=== PATIENT | male | born 1985 | race Caucasian/White ===

== ENCOUNTER 2019-05-05 21:03 | Observation (INO) | payer SELFPAY ==
[2019-05-05] MEDS ORDERED: Sodium Chloride 0.9% 2.5 ML Syringe FLUSH PRN (21:09)
[2019-05-05] MEDS ORDERED: Albuterol/Ipratropium 3.0-0.5 MG/3 ML Neb Soln NEB ONE (21:09)
[2019-05-05] MEDS ORDERED: Ketorolac 30 MG/ML SDV IVPUSH ONE (21:09)
[2019-05-05] MEDS ORDERED: Sodium Chloride 0.9% 10 ML Syringe FLUSH PRN (21:09)
--- NOTE | 2019-05-05 21:14 | EDM.PDOC ---
ED HPI GENERAL MEDICAL PROBLEM - General Chief Complaint: Drug or Alcohol Abuse Stated Complaint: EMS ARRIVAL POSSIBLE OD Time Seen by Provider: 05/05/19 21:04 - History of Present Illness INITIAL COMMENTS - FREE TEXT/NARRATIVE: HISTORY AND PHYSICAL: History of present illness: The patient is a 33-year-old male who arrives via EMS after they were dispatched for not breathing/apnea. On their arrival bystanders were trying to do CPR and the patient was bagged and given Narcan, intranasal and IV, and woke up and was alert and oriented. Here in the ED he denies that he has done any illicit drugs and he does admit that he has used [place] in the past for pain but his prescription bottle which is empty was filled in December and he says he has not taken any since March. He also has a history of ADHD for which he takes an amphetamine-based medications but he is he has not taken it recently. He denies any alcohol use tonight and does not smoke. He says that he had a normal day earlier and that this evening he has no recall of events and the next thing that he remembers was EMS being over him. He complains of diffuse body pain but no specific head neck or back pain. He says that everything is achy. He has had no recent fevers chills cough runny nose abdominal pain vomiting or diarrhea. Per EMS on their arrival the patient did have a vomit in the oral airway which was suctioned aggressively. Currently the patient says he is coughing and he did not have a cough earlier and he feels like it is painful to take a deep breath. He has no extremity complaints. He says he believes that he ate normally earlier but he is not sure. Review of systems: As per history of present illness and below otherwise all systems reviewed and negative. Past medical history: As per history of present illness and as reviewed below otherwise noncontributory. Surgical history: As per history of present illness and as reviewed below otherwise noncontributory. Social history: No reported history of drug or alcohol abuse. Family history: As per history of present illness and as reviewed below otherwise noncontributory. Physical exam: General: Well-developed well-nourished overweight man who is nontoxic and speaking clearly and vital signs are noted by me HEENT: Atraumatic, normocephalic, pupils reactive, negative for conjunctival pallor or scleral icterus, mucous membranes moist, throat clear, neck supple, nontender, trachea midline. Lungs: Coarse Breath sounds throughout all lung villarreal but there is no wheezing stridor and there is some minimal work of breathing and there is no breathlessness breath sounds equal bilaterally, chest nontender. Heart: S1S2, regular them and tachycardic rate on my evaluation but no overt murmurs Abdomen: Soft, nondistended, nontender. Negative for masses or hepatosplenomegaly. Negative for costovertebral tenderness. Pelvis: Stable nontender. Genitourinary: Deferred. Rectal: Deferred. Extremities: Atraumatic, negative for cords or calf pain. Neurovascular unremarkable. Full range of motion without defects or deficits and no pedal edema Neuro: Awake, alert, oriented. Cranial nerves II through XII unremarkable. Cerebellum unremarkable. Motor and sensory unremarkable throughout. Exam nonfocal. Back: There are no midline step-offs tenderness defects of the thoracic or lumbar spine and no soft tissue injuries such as abrasion ecchymosis or erythema Diagnostics: EKG CBC CMP UA UDS BNP Tylenol and aspirin levels alcohol level troponin and chest x-ray ABG Therapeutics: IV O2 monitor IV fluids DuoNeb Toradol 7 And has been holding his sats at 90 to 93% on 15 L nonrebreather and after the DuoNeb is coughing a lot. He does get intermittently very anxious but he is mentating fine and holding his vitals. We are going to do an ABG and evaluate for symptomatic BiPAP. We are currently awaiting the rest of his tests and a formal chest x-ray reading. 2149: I d/w with the hospitalist Dr Presley he is aware of the patient's status and that he would likely need ICU admission or transfer and she is currently in the hospital seeing other patients and will be recontacted after I obtain all testing results in the ICU. Patient has had his oxygen weaned to 2 L and is satting 94% and is thirsty. I will re-discussed this case with the hospitalist in light of his testing results. 8: Have discussed all testing results with the patient and he continues to deny any drug use this evening. He is feeling much improved and we continue to wean his oxygen. He is thirsty and wants to drink and is not complaining of any specific chest pain but just generalized body aches. I have also discussed this case with Dr. Presley her hospitalist and she is aware of all test including the troponin and feels comfortable admitting him here to ICU. critical care time excluding procedures:35min Impression: Acute respiratory abnormalities with hypoxia, acute pulmonary edema with likely aspiration; elevated troponin Recent drug use Definitive disposition and diagnosis as appropriate pending reevaluation and review of above. generalized Pain Score (Numeric/FACES): 10 - Related Data Allergies Allergy/AdvReac Type Severity Reaction Status Date / Time No Known Allergies Allergy Verified 05/05/19 21:05 Home Meds: Home Meds Dextroamphetamine/Amphetamine [Adderall] 30 mg PO DAILY 05/05/19 [History] Hydrocodone/Acetaminophen [Hydrocodon-Acetaminoph 7.5-325] 1 each PO ASDIRECTED PRN 05/05/19 [History] ED ROS GENERAL - Review of Systems Review Of Systems: Comprehensive ROS is negative, except as noted in HPI. ED EXAM, GENERAL - Physical Exam Exam: See Below (see dictation) Course - Vital Signs Last Recorded V/S: Last Vital Signs Temp 36.7 C 05/05/19 22:58 Pulse 101 H 05/05/19 23:12 Resp 23 H 05/05/19 23:12 BP 126/78 05/05/19 23:12 Pulse Ox 95 05/05/19 23:12 - Orders/Labs/Meds Orders: Active Orders 24 hr Category Date Time Status Patient Status [ADT] Stat ADT 05/05/19 23:28 Ordered Cardiac Monitoring [RC] . DIRECTED Care 05/05/19 21:08 Active EKG Documentation Completion [RC] STAT Care 05/05/19 21:08 Active Oxygen Therapy, ED [RC] ASDIRECTED Care 05/05/19 21:08 Active Pulse Oximetry [RC] ASDIRECTED Care 05/05/19 21:08 Active RT Aerosol Therapy [RC] ASDIRECTED Care 05/05/19 21:09 Active Sodium Chloride 0.9% [Normal Saline] 1,000 ml Med 05/05/19 21:15 Active IV ASDIRECTED Sodium Chloride 0.9% [Saline Flush] Med 05/05/19 21:09 Active 10 ml FLUSH ASDIRECTED PRN Sodium Chloride 0.9% [Saline Flush] Med 05/05/19 21:09 Active 2.5 ml FLUSH ASDIRECTED PRN Saline Lock Insert [OM.PC] Stat Oth 05/05/19 21:08 Ordered Medication Orders Sodium Chloride (Normal Saline) 1,000 mls @ 150 mls/hr IV ASDIRECTED IRVIN Last Admin: 05/05/19 21:36 Dose: 150 mls/hr Sodium Chloride (Saline Flush) 10 ml FLUSH ASDIRECTED PRN PRN Reason: Keep Vein Open Sodium Chloride (Saline Flush) 2.5 ml FLUSH ASDIRECTED PRN PRN Reason: Keep Vein Open Labs: Laboratory Tests 05/05/19 05/05/19 05/05/19 Range/Units 21:22 21:22 21:22 WBC 9.31 (4.0-11.0) K/uL RBC 5.58 (4.50-5.90) M/uL Hgb 16.1 (13.0-17.0) g/dL Hct 47.0 (38.0-50.0) % MCV 84.2 (80.0-98.0) fL MCH 28.9 (27.0-32.0) pg MCHC 34.3 (31.0-37.0) g/dL RDW Std Deviation 45.0 (28.0-62.0) fl RDW Coeff of Atb 15 (11.0-15.0) % Plt Count 299 (150-400) K/uL MPV 11.30 (7.40-12.00) fL Neut % (Auto) 72.2 (48.0-80.0) % Lymph % (Auto) 20.0 (16.0-40.0) % [place] % (Auto) 5.3 (0.0-15.0) % Eos % (Auto) 1.7 (0.0-7.0) % Baso % (Auto) 0.8 (0.0-1.5) % Neut # (Auto) 6.7 H (1.4-5.7) K/uL Lymph # (Auto) 1.9 (0.6-2.4) K/uL [place] # (Auto) 0.5 (0.0-0.8) K/uL Eos # (Auto) 0.2 (0.0-0.7) K/uL Baso # (Auto) 0.1 (0.0-0.1) K/uL Nucleated RBC % 0.0 /100WBC Nucleated RBCs # 0 K/uL ABG pH (7.35-7.45) ABG pCO2 (35-45) mmHG ABG pO2 (75-100) mmHG ABG HCO3 (22-26) mEq/L ABG Total CO2 ABG Base Excess (-2.0-2.0) Sodium 141 (136-148) mmol/L Potassium 4.0 (3.5-5.1) mmol/L Chloride 103 (98-107) mmol/L Carbon Dioxide 22.9 (21.0-32.0) mmol/L BUN 17 (7.0-18.0) mg/dL Creatinine 1.4 H (0.8-1.3) mg/dL Est Cr Clr Drug Dosing 80.68 mL/min Estimated GFR (MDRD) 58.7 ml/min Glucose 122 H (74-106) mg/dL Calcium 9.6 (8.5-10.1) mg/dL Total Bilirubin 0.4 (0.2-1.0) mg/dL AST 121 H (15-37) IU/L ALT 122 H (14-63) IU/L Alkaline Phosphatase 80 (46-116) U/L Troponin I 0.069 H* (0.000-0.056) ng/mL B-Natriuretic Peptide 21 (<100) PG/ML Total Protein 7.6 (6.4-8.2) g/dL Albumin 3.7 (3.4-5.0) g/dL Globulin 3.9 (2.6-4.0) g/dL Albumin/Globulin Ratio 0.9 (0.9-1.6) Urine Color Urine Appearance Urine pH (5.0-8.0) Ur Specific [place] (1.001-1.035) Urine Protein (NEGATIVE) mg/dL Urine Glucose (UA) (NEGATIVE) mg/dL Urine Ketones (NEGATIVE) mg/dL Urine Occult Blood (NEGATIVE) Urine Nitrite (NEGATIVE) Urine Bilirubin (NEGATIVE) Urine Urobilinogen (<2.0) EU/dL Ur Leukocyte Esterase (NEGATIVE) Urine RBC (0-2/HPF) Urine WBC (0-5/HPF) Ur Epithelial Cells (NONE-FEW) Urine Bacteria (NEGATIVE) Salicylates 2.2 (0-20) mg/dL Urine Opiates Screen (NEGATIVE) Ur Oxycodone Screen (NEGATIVE) Urine Methadone Screen (NEGATIVE) Acetaminophen <2.0 ug/mL Ur Barbiturates Screen (NEGATIVE) Ur Phencyclidine Scrn (NEGATIVE) Ur Amphetamine Screen (NEGATIVE) U Methamphetamines Scrn (NEGATIVE) U Benzodiazepines Scrn (NEGATIVE) U Cocaine Metab Screen (NEGATIVE) U Marijuana (THC) Screen (NEGATIVE) Ethyl Alcohol <3 mg/dL 05/05/19 05/05/19 05/05/19 Range/Units 21:50 22:11 22:11 WBC (4.0-11.0) K/uL RBC (4.50-5.90) M/uL Hgb (13.0-17.0) g/dL Hct (38.0-50.0) % MCV (80.0-98.0) fL MCH (27.0-32.0) pg MCHC (31.0-37.0) g/dL RDW Std Deviation (28.0-62.0) fl RDW Coeff of Tab (11.0-15.0) % Plt Count (150-400) K/uL MPV (7.40-12.00) fL Neut % (Auto) (48.0-80.0) % Lymph % (Auto) (16.0-40.0) % [place] % (Auto) (0.0-15.0) % Eos % (Auto) (0.0-7.0) % Baso % (Auto) (0.0-1.5) % Neut # (Auto) (1.4-5.7) K/uL Lymph # (Auto) (0.6-2.4) K/uL [place] # (Auto) (0.0-0.8) K/uL Eos # (Auto) (0.0-0.7) K/uL Baso # (Auto) (0.0-0.1) K/uL Nucleated RBC % /100WBC Nucleated RBCs # K/uL ABG pH 7.364 (7.35-7.45) ABG pCO2 44 (35-45) mmHG ABG pO2 85 (75-100) mmHG ABG HCO3 25 (22-26) mEq/L ABG Total CO2 22.1 ABG Base Excess -0.7 (-2.0-2.0) Sodium (136-148) mmol/L Potassium (3.5-5.1) mmol/L Chloride (98-107) mmol/L Carbon Dioxide (21.0-32.0) mmol/L BUN (7.0-18.0) mg/dL Creatinine (0.8-1.3) mg/dL Est Cr Clr Drug Dosing mL/min Estimated GFR (MDRD) ml/min Glucose (74-106) mg/dL Calcium (8.5-10.1) mg/dL Total Bilirubin (0.2-1.0) mg/dL AST (15-37) IU/L ALT (14-63) IU/L Alkaline Phosphatase (46-116) U/L Troponin I (0.000-0.056) ng/mL B-Natriuretic Peptide (<100) PG/ML Total Protein (6.4-8.2) g/dL Albumin (3.4-5.0) g/dL Globulin (2.6-4.0) g/dL Albumin/Globulin Ratio (0.9-1.6) Urine Color YELLOW Urine Appearance CLEAR Urine pH 5.5 (5.0-8.0) Ur Specific [place] >= 1.030 (1.001-1.035) Urine Protein TRACE H (NEGATIVE) mg/dL Urine Glucose (UA) NEGATIVE (NEGATIVE) mg/dL Urine Ketones NEGATIVE (NEGATIVE) mg/dL Urine Occult Blood NEGATIVE (NEGATIVE) Urine Nitrite NEGATIVE (NEGATIVE) Urine Bilirubin NEGATIVE (NEGATIVE) Urine Urobilinogen 0.2 (<2.0) EU/dL Ur Leukocyte Esterase NEGATIVE (NEGATIVE) Urine RBC 0-1 (0-2/HPF) Urine WBC 0-1 (0-5/HPF) Ur Epithelial Cells RARE (NONE-FEW) Urine Bacteria RARE (NEGATIVE) Salicylates (0-20) mg/dL Urine Opiates Screen NEGATIVE (NEGATIVE) Ur Oxycodone Screen NEGATIVE (NEGATIVE) Urine Methadone Screen NEGATIVE (NEGATIVE) Acetaminophen ug/mL Ur Barbiturates Screen NEGATIVE (NEGATIVE) Ur Phencyclidine Scrn NEGATIVE (NEGATIVE) Ur Amphetamine Screen POSITIVE (NEGATIVE) U Methamphetamines Scrn NEGATIVE (NEGATIVE) U Benzodiazepines Scrn NEGATIVE (NEGATIVE) U Cocaine Metab Screen POSITIVE (NEGATIVE) U Marijuana (THC) Screen NEGATIVE (NEGATIVE) Ethyl Alcohol mg/dL Meds: Medications Generic Name Dose Route Start Last Admin Trade Name Sherrell PRN Reason Stop Dose Admin Sodium Chloride 1,000 mls @ 150 mls/hr 05/05/19 21:15 05/05/19 21:36 Normal Saline IV 150 mls/hr ASDIRECTED IRVIN Administration Sodium Chloride 10 ml 05/05/19 21:09 Saline Flush FLUSH ASDIRECTED PRN Keep Vein Open Sodium Chloride 2.5 ml 05/05/19 21:09 Saline Flush FLUSH ASDIRECTED PRN Keep Vein Open Discontinued Medications Generic Name Dose Route Start Last Admin Trade Name Sherrell PRN Reason Stop Dose Admin Albuterol/Ipratropium 3 ml 05/05/19 21:09 05/05/19 21:36 Duoneb 3.0-0.5 Mg/3 Ml NEB 05/05/19 21:10 3 ml ONETIME ONE Administration Piperacillin Sod/Tazobactam 100 mls @ 100 mls/hr 05/05/19 22:10 05/05/19 22: 32 Sod 4.5 gm/ Sodium Chloride IV 05/05/19 23:09 100 mls/hr ONETIME ONE Administration Ketorolac Tromethamine 30 mg 05/05/19 21:09 05/05/19 21:37 Toradol IVPUSH 05/05/19 21:10 30 mg ONETIME ONE Administration Departure - Departure Time of Disposition: 23:30 Disposition: Refer to Observation Condition: Fair Clinical Impression: Hypoxia, Respiratory abnormalities, Drug use, Elevated troponin - Discharge Information Forms: ED Department Discharge Sepsis Event Note - Focused Exam Vital Signs: Vital Signs Temp Pulse Resp BP Pulse Ox Pulse Ox 05/05/19 23:12 101 H 23 H 126/78 95 05/05/19 22:58 36.7 C 97 17 135/78 94 L 05/05/19 22:34 99 22 H 135/83 99 05/05/19 22:28 99 22 H 145/81 H 98 05/05/19 21:56 102 H 24 H 135/75 97 05/05/19 21:41 107 H 24 H 118/48 L 93 L 05/05/19 21:40 92 L 05/05/19 21:13 36.6 C 125 H 20 136/104 H 90 L Date Exam was Performed: 05/05/19 Time Exam was Performed: 23:29 - My Orders Last 24 Hours: My Active Orders 05/05/19 21:08 Cardiac Monitoring [RC] . DIRECTED EKG Documentation Completion [RC] STAT Oxygen Therapy, ED [RC] ASDIRECTED Pulse Oximetry [RC] ASDIRECTED Saline Lock Insert [OM.PC] Stat 05/05/19 21:09 RT Aerosol Therapy [RC] ASDIRECTED Sodium Chloride 0.9% [Saline Flush] 10 ml FLUSH ASDIRECTED PRN Sodium Chloride 0.9% [Saline Flush] 2.5 ml FLUSH ASDIRECTED PRN 05/05/19 21:15 Sodium Chloride 0.9% [Normal Saline] 1,000 ml IV ASDIRECTED 05/05/19 23:28 Patient Status [ADT] Stat - Assessment/Plan Last 24 Hours: My Active Orders 05/05/19 21:08 Cardiac Monitoring [RC] . DIRECTED EKG Documentation Completion [RC] STAT Oxygen Therapy, ED [RC] ASDIRECTED Pulse Oximetry [RC] ASDIRECTED Saline Lock Insert [OM.PC] Stat 05/05/19 21:09 RT Aerosol Therapy [RC] ASDIRECTED Sodium Chloride 0.9% [Saline Flush] 10 ml FLUSH ASDIRECTED PRN Sodium Chloride 0.9% [Saline Flush] 2.5 ml FLUSH ASDIRECTED PRN 05/05/19 21:15 Sodium Chloride 0.9% [Normal Saline] 1,000 ml IV ASDIRECTED 05/05/19 23:28 Patient Status [ADT] Stat
[2019-05-05] MEDS ORDERED: Sodium Chloride 0.9% 1,000 ML IV SCH (21:15)
[2019-05-05 21:52] LABS: ACETAMINOPHEN <2.0 ug/mL; BLOOD UREA NITROGEN,BUN 17 mg/dL (7.0-18.0); CARBON DIOXIDE,CO2 22.9 mmol/L (21.0-32.0); CHLORIDE,CL 103 mmol/L (98-107); GLUCOSE RANDOM 122 mg/dL (74-106); SODIUM,NA 141 mmol/L (136-148)
--- NOTE | 2019-05-05 21:56 | CR ---
Indication: Possible OD. Found unresponsive by EMS Technique: Single AP portable view of the chest. Comparison: None Findings: Hurts normal-sized. Diffusely increased interstitial opacities are identified bilaterally. No pleural effusion or pneumothorax is identified. Impression: Diffusely increased interstitial opacities bilaterally, particularly within the upper lobes. Dictated by Flora Gonzalez MD @ May 05 2019 9:52PM Signed by Dr. Flora Gonzalez @ May 05 2019 9:54PM
[2019-05-05] MEDS ORDERED: Piperacillin/Tazobactam 4.5 GM in Sodium Chloride 0.9% 100 ML IV ONE (22:10)
--- NOTE | 2019-05-06 00:20 | PCM.HP.2 ---
H&P History of Present Illness - General Date of Service: 05/06/19 Admit Problem/Dx: Admission Diagnosis/Problem Admission Diagnosis/Problem Respiratory abnormality - History of Present Illness Initial Comments - Free Text/Narative: Patient is a 33 y/o M with PMH of drug abuse who comes in via EMS for apnea. Patient reportedly received was found to have no pulse hence received CPR and was being bagged for airway. Upon administering Narcan patient was able to wake up and was awake and oriented. Patient is not very forth coming about his history. Denied any illicit drug use. States he has prescription for Narco in the past. He also takes Amphetamine based Meds for his ADHD. Patient denies any alcohol use tonight and does not smoke. He complains of diffuse body pain but no specific head, neck back pain or chest pain. Per EMS on their arrival the patient did have a vomit in the oral airway which was suctioned aggressively. Currently the patient says he is coughing and he did not have a cough earlier and he feels like it is painful to take a deep breath. He has had no recent fevers chills cough runny nose abdominal pain, diarrhea. In the ER patients UDS was found to positive for cocaine and amphetamine. Patients Xray showed diffuse interstitial lung markings. Received antibiotics for possible Aspiration pneumonia. Patient was requiring 15 litres of high flow o2 in ER. In next few hours his oxygen requiemt improved to 4 L. !st set of trop was elevated attributed to him receiving CPR vs possible cocaine induced vasospasm. Patient is being admitted to ICU for further care. generalized Pain Score (Numeric/FACES): 8 - Related Data Allergies/Adverse Reactions: Allergies Allergy/AdvReac Type Severity Reaction Status Date / Time No Known Allergies Allergy Verified 05/05/19 21:05 Home Medications: Home Meds Dextroamphetamine/Amphetamine [Adderall] 30 mg PO DAILY 05/05/19 [History] Hydrocodone/Acetaminophen [Hydrocodon-Acetaminoph 7.5-325] 1 each PO ASDIRECTED PRN 05/05/19 [History] Past Medical History HEENT History: Reports: None Cardiovascular History: Reports: None Respiratory History: Reports: None Gastrointestinal History: Reports: None Genitourinary History: Reports: None Musculoskeletal History: Reports: None Neurological History: Reports: None Psychiatric History: Reports: ADHD Endocrine/Metabolic History: Reports: None Hematologic History: Reports: None Oncologic (Cancer) History: Reports: None Dermatologic History: Reports: None - Infectious Disease History Infectious Disease History: Reports: None Social & Family History - Family History Family Medical History: Noncontributory - Tobacco Use Smoking Status *Q: Current Every Day Smoker Years of Tobacco use: 5 Packs/Tins Daily: 1 - Recreational Drug Use Recreational Drug Use: No H&P Review of Systems - Review of Systems: Review Of Systems: See Below General: Denies: Fever, Chills, Malaise, Fatigue Pulmonary: Reports: Shortness of Breath, Wheezing, Pleuritic Chest Pain, Cough. Denies: Sputum Cardiovascular: Denies: Chest Pain, Palpitations, Orthopnea Gastrointestinal: Denies: Abdominal Pain, Anorexia, Black Stool, Bloody Stool Genitourinary: Denies: Frequency, Burning, Retention Musculoskeletal: Denies: Neck Pain, Shoulder Pain, Arm Pain Skin: Denies: Cyanosis, Jaundice, Mottled Psychiatric: Denies: Confusion, Depression, Mood Lability Neurological: Denies: Confusion, Dizziness, Headache, Numbness, Paresthesia Hematologic/Lymphatic: Denies: Anemia, Easy Bleeding Exam - Exam Exam: See Below - Vital Signs Vital Signs: Last Vital Signs Temp 36.2 C 05/06/19 00:14 Pulse 101 H 05/06/19 00:14 Resp 20 05/06/19 00:14 BP 133/70 05/06/19 00:14 Pulse Ox 95 05/06/19 00:14 Weight: 104.326 kg - Exam Quality Assessment: Supplemental Oxygen General: Alert, Oriented. No: Cooperative HEENT: Conjunctiva Clear Neck: Supple, Trachea Midline Lungs: Rales, Wheezing Cardiovascular: Regular Rate, Regular Rhythm, Normal S1, Normal S2 GI/Abdominal Exam: Normal Bowel Sounds, Soft, Non-Tender - Patient Data Lab Results Last 24 hrs: Laboratory Results - last 24 hr 05/05/19 05/05/19 05/05/19 Range/Units 21:22 21:22 21:22 WBC 9.31 (4.0-11.0) K/uL RBC 5.58 (4.50-5.90) M/uL Hgb 16.1 (13.0-17.0) g/dL Hct 47.0 (38.0-50.0) % MCV 84.2 (80.0-98.0) fL MCH 28.9 (27.0-32.0) pg MCHC 34.3 (31.0-37.0) g/dL RDW Std Deviation 45.0 (28.0-62.0) fl RDW Coeff of Tab 15 (11.0-15.0) % Plt Count 299 (150-400) K/uL MPV 11.30 (7.40-12.00) fL Neut % (Auto) 72.2 (48.0-80.0) % Lymph % (Auto) 20.0 (16.0-40.0) % [place] % (Auto) 5.3 (0.0-15.0) % Eos % (Auto) 1.7 (0.0-7.0) % Baso % (Auto) 0.8 (0.0-1.5) % Neut # (Auto) 6.7 H (1.4-5.7) K/uL Lymph # (Auto) 1.9 (0.6-2.4) K/uL [place] # (Auto) 0.5 (0.0-0.8) K/uL Eos # (Auto) 0.2 (0.0-0.7) K/uL Baso # (Auto) 0.1 (0.0-0.1) K/uL Nucleated RBC % 0.0 /100WBC Nucleated RBCs # 0 K/uL ABG pH (7.35-7.45) ABG pCO2 (35-45) mmHG ABG pO2 (75-100) mmHG ABG HCO3 (22-26) mEq/L ABG Total CO2 ABG Base Excess (-2.0-2.0) Sodium 141 (136-148) mmol/L Potassium 4.0 (3.5-5.1) mmol/L Chloride 103 (98-107) mmol/L Carbon Dioxide 22.9 (21.0-32.0) mmol/L BUN 17 (7.0-18.0) mg/dL Creatinine 1.4 H (0.8-1.3) mg/dL Est Cr Clr Drug Dosing 80.68 mL/min Estimated GFR (MDRD) 58.7 ml/min Glucose 122 H (74-106) mg/dL Calcium 9.6 (8.5-10.1) mg/dL Total Bilirubin 0.4 (0.2-1.0) mg/dL AST 121 H (15-37) IU/L ALT 122 H (14-63) IU/L Alkaline Phosphatase 80 (46-116) U/L Troponin I 0.069 H* (0.000-0.056) ng/mL B-Natriuretic Peptide 21 (<100) PG/ML Total Protein 7.6 (6.4-8.2) g/dL Albumin 3.7 (3.4-5.0) g/dL Globulin 3.9 (2.6-4.0) g/dL Albumin/Globulin Ratio 0.9 (0.9-1.6) Urine Color Urine Appearance Urine pH (5.0-8.0) Ur Specific [place] (1.001-1.035) Urine Protein (NEGATIVE) mg/dL Urine Glucose (UA) (NEGATIVE) mg/dL Urine Ketones (NEGATIVE) mg/dL Urine Occult Blood (NEGATIVE) Urine Nitrite (NEGATIVE) Urine Bilirubin (NEGATIVE) Urine Urobilinogen (<2.0) EU/dL Ur Leukocyte Esterase (NEGATIVE) Urine RBC (0-2/HPF) Urine WBC (0-5/HPF) Ur Epithelial Cells (NONE-FEW) Urine Bacteria (NEGATIVE) Salicylates 2.2 (0-20) mg/dL Urine Opiates Screen (NEGATIVE) Ur Oxycodone Screen (NEGATIVE) Urine Methadone Screen (NEGATIVE) Acetaminophen <2.0 ug/mL Ur Barbiturates Screen (NEGATIVE) Ur Phencyclidine Scrn (NEGATIVE) Ur Amphetamine Screen (NEGATIVE) U Methamphetamines Scrn (NEGATIVE) U Benzodiazepines Scrn (NEGATIVE) U Cocaine Metab Screen (NEGATIVE) U Marijuana (THC) Screen (NEGATIVE) Ethyl Alcohol <3 mg/dL 05/05/19 05/05/19 05/05/19 Range/Units 21:50 22:11 22:11 WBC (4.0-11.0) K/uL RBC (4.50-5.90) M/uL Hgb (13.0-17.0) g/dL Hct (38.0-50.0) % MCV (80.0-98.0) fL MCH (27.0-32.0) pg MCHC (31.0-37.0) g/dL RDW Std Deviation (28.0-62.0) fl RDW Coeff of Tab (11.0-15.0) % Plt Count (150-400) K/uL MPV (7.40-12.00) fL Neut % (Auto) (48.0-80.0) % Lymph % (Auto) (16.0-40.0) % [place] % (Auto) (0.0-15.0) % Eos % (Auto) (0.0-7.0) % Baso % (Auto) (0.0-1.5) % Neut # (Auto) (1.4-5.7) K/uL Lymph # (Auto) (0.6-2.4) K/uL [place] # (Auto) (0.0-0.8) K/uL Eos # (Auto) (0.0-0.7) K/uL Baso # (Auto) (0.0-0.1) K/uL Nucleated RBC % /100WBC Nucleated RBCs # K/uL ABG pH 7.364 (7.35-7.45) ABG pCO2 44 (35-45) mmHG ABG pO2 85 (75-100) mmHG ABG HCO3 25 (22-26) mEq/L ABG Total CO2 22.1 ABG Base Excess -0.7 (-2.0-2.0) Sodium (136-148) mmol/L Potassium (3.5-5.1) mmol/L Chloride (98-107) mmol/L Carbon Dioxide (21.0-32.0) mmol/L BUN (7.0-18.0) mg/dL Creatinine (0.8-1.3) mg/dL Est Cr Clr Drug Dosing mL/min Estimated GFR (MDRD) ml/min Glucose (74-106) mg/dL Calcium (8.5-10.1) mg/dL Total Bilirubin (0.2-1.0) mg/dL AST (15-37) IU/L ALT (14-63) IU/L Alkaline Phosphatase (46-116) U/L Troponin I (0.000-0.056) ng/mL B-Natriuretic Peptide (<100) PG/ML Total Protein (6.4-8.2) g/dL Albumin (3.4-5.0) g/dL Globulin (2.6-4.0) g/dL Albumin/Globulin Ratio (0.9-1.6) Urine Color YELLOW Urine Appearance CLEAR Urine pH 5.5 (5.0-8.0) Ur Specific [place] >= 1.030 (1.001-1.035) Urine Protein TRACE H (NEGATIVE) mg/dL Urine Glucose (UA) NEGATIVE (NEGATIVE) mg/dL Urine Ketones NEGATIVE (NEGATIVE) mg/dL Urine Occult Blood NEGATIVE (NEGATIVE) Urine Nitrite NEGATIVE (NEGATIVE) Urine Bilirubin NEGATIVE (NEGATIVE) Urine Urobilinogen 0.2 (<2.0) EU/dL Ur Leukocyte Esterase NEGATIVE (NEGATIVE) Urine RBC 0-1 (0-2/HPF) Urine WBC 0-1 (0-5/HPF) Ur Epithelial Cells RARE (NONE-FEW) Urine Bacteria RARE (NEGATIVE) Salicylates (0-20) mg/dL Urine Opiates Screen NEGATIVE (NEGATIVE) Ur Oxycodone Screen NEGATIVE (NEGATIVE) Urine Methadone Screen NEGATIVE (NEGATIVE) Acetaminophen ug/mL Ur Barbiturates Screen NEGATIVE (NEGATIVE) Ur Phencyclidine Scrn NEGATIVE (NEGATIVE) Ur Amphetamine Screen POSITIVE (NEGATIVE) U Methamphetamines Scrn NEGATIVE (NEGATIVE) U Benzodiazepines Scrn NEGATIVE (NEGATIVE) U Cocaine Metab Screen POSITIVE (NEGATIVE) U Marijuana (THC) Screen NEGATIVE (NEGATIVE) Ethyl Alcohol mg/dL Result Diagrams: 05/05/19 21:22 05/05/19 21:22 Sepsis Event Note - Evaluation Sepsis Screening Result: No Definite Risk - Focused Exam Vital Signs: Vital Signs Temp Pulse Resp BP Pulse Ox Pulse Ox 05/06/19 00:14 36.2 C 101 H 20 133/70 95 05/05/19 23:42 36.6 C 101 H 20 126/78 96 05/05/19 23:12 101 H 23 H 126/78 95 05/05/19 22:58 36.7 C 97 17 135/78 94 L 05/05/19 22:34 99 22 H 135/83 99 05/05/19 22:28 99 22 H 145/81 H 98 05/05/19 21:56 102 H 24 H 135/75 97 05/05/19 21:41 107 H 24 H 118/48 L 93 L 05/05/19 21:40 92 L 05/05/19 21:13 36.6 C 125 H 20 136/104 H 90 L Date Exam was Performed: 05/06/19 Time Exam was Performed: 00:39 - Problem List (1) Acute respiratory failure with hypoxia SNOMED Code(s): 44453312, 114238923 ICD Code: J96.01 - ACUTE RESPIRATORY FAILURE WITH HYPOXIA Status: Acute (2) Drug use SNOMED Code(s): 881658563 ICD Code: F19.90 - OTHER PSYCHOACTIVE SUBSTANCE USE, UNSPECIFIED, UNCOMPLICATED Status: Acute (3) Elevated troponin SNOMED Code(s): 609611135, 376923235, 427751523 ICD Code: R79.89 - OTHER SPECIFIED ABNORMAL FINDINGS OF BLOOD CHEMISTRY Status: Acute Problem List Initiated/Reviewed/Updated: Yes Orders Last 24hrs: Active Orders 24 hr Category Date Time Status Patient Status [ADT] Stat ADT 05/05/19 23:28 Active Bedrest Bathroom Privileges [RC] ASDIRECTED Care 05/06/19 00:14 Ordered Cardiac Monitoring [RC] . DIRECTED Care 05/05/19 21:08 Active EKG Documentation Completion [RC] STAT Care 05/05/19 21:08 Active Oxygen Therapy [RC] CONTINUOUS Care 05/06/19 00:15 Ordered Oxygen Therapy, ED [RC] ASDIRECTED Care 05/05/19 21:08 Active Pulse Oximetry [RC] ASDIRECTED Care 05/05/19 21:08 Active RT Aerosol Therapy [RC] ASDIRECTED Care 05/05/19 21:09 Active RT Aerosol Therapy [RC] ASDIRECTED Care 05/06/19 00:16 Ordered Vital Signs [RC] Q4H Care 05/06/19 00:14 Ordered Clear Liquid Diet [DIET] Diet 05/06/19 Breakfast Ordered Echo 2D wo Cont [US] Stat Exams 05/06/19 00:17 Ordered LIPID PANEL [CHEM] AM Lab 05/06/19 05:11 Ordered TROPONIN I [CHEM] Q3H Lab 05/06/19 00:20 Ordered TROPONIN I [CHEM] Q3H Lab 05/06/19 03:20 Ordered TSH [CHEM] AM Lab 05/06/19 05:11 Ordered Albuterol/Ipratropium [DuoNeb 3.0-0.5 MG/3 ML] Med 05/06/19 02:00 Ordered 3 ml NEB Q4HRRT Lactated Ringers @ 100 MLS/HR(1,000ml) Med 05/06/19 00:30 Ordered Lactated Ringers [Ringers, Lactated] 1,000 ml IV ASDIRECTED Sodium Chloride 0.9% [Normal Saline] 1,000 ml Med 05/05/19 21:15 Active IV ASDIRECTED Sodium Chloride 0.9% [Saline Flush] Med 05/05/19 21:09 Active 10 ml FLUSH ASDIRECTED PRN Sodium Chloride 0.9% [Saline Flush] Med 05/05/19 21:09 Active 2.5 ml FLUSH ASDIRECTED PRN Saline Lock Insert [OM.PC] Stat Oth 05/05/19 21:08 Ordered Medication Orders Albuterol/Ipratropium (Duoneb 3.0-0.5 Mg/3 Ml) 3 ml NEB Q4HRRT IRVIN Sodium Chloride (Normal Saline) 1,000 mls @ 150 mls/hr IV ASDIRECTED IRVIN Last Admin: 05/05/19 21:36 Dose: 150 mls/hr Lactated Ringer's (Ringers, Lactated) 1,000 mls @ 100 mls/hr IV ASDIRECTED IRVIN Sodium Chloride (Saline Flush) 10 ml FLUSH ASDIRECTED PRN PRN Reason: Keep Vein Open Sodium Chloride (Saline Flush) 2.5 ml FLUSH ASDIRECTED PRN PRN Reason: Keep Vein Open Assessment/Plan Comment:: 33 y/o M comes in after he was found apneic s/p CPR, s/p Narcan administration Currently requiring 4-5 lts of O2 Cont oxygenation via NC to maintain o2 >93% DuoNebs Q4 Scheduled 1 dose of Lasix 40 mg or possible pulmonary edema secondary to cardiac insult Hold if IV antibiotics for now Cont to trend troponin,elevated likely secondary to CPR vs cocaine induced Patient does not c/o chest pain , generalized aches and pain, reproducible musculoskeletal chest tenderness Check Morning CBC, BMP, mg,phos, lfts cont IVF, keep NPO for now Needs outpatient drug rehab when patient is willing to quit, for now patient denied any drug use.
[2019-05-06] MEDS ORDERED: Ketorolac 15 MG/ML SDV IVPUSH PRN (00:38)
--- NOTE | 2019-05-06 01:16 | PN ---
THC Physician - Brief Progress [id number]/29/2020 00:59[facility] [place], [place] - [facility] AMADO of Service 05/06/2019 00:59HPI/Even ts of Note Brief eICU Admit [id number] yo with hx of Drug abusePresents with Drug OD possible cardiac arrestO/E Seen on cameraVSS, NADIssuesDrug abuses/p arrestResponsive? aspirationFollowSupportive care Case reviewed with bedside MDCall with questionsWill followInterventions Major-Change in mental stat us - evaluation and management
[2019-05-06] MEDS: Lactated Ringers 1,000 ML IV SCH ×2 (01:36→12:47)
[2019-05-06] MEDS: Albuterol/Ipratropium 3.0-0.5 MG/3 ML Neb Soln NEB SCH ×6 (01:58→21:30)
[2019-05-06] MEDS: Enoxaparin 100 MG/1 ML Syringe SUBCUT SCH ×2 (02:22→05:45)
[2019-05-06] MEDS ORDERED: Ketorolac 30 MG/ML SDV IVPUSH ONE (04:30)
[2019-05-06 08:38] LABS: BLOOD UREA NITROGEN,BUN 18 mg/dL (7.0-18.0); CARBON DIOXIDE,CO2 25.3 mmol/L (21.0-32.0); CHLORIDE,CL 104 mmol/L (98-107); GLUCOSE RANDOM 103 mg/dL (74-106); POTASSIUM,K 4.3 mmol/L (3.5-5.1); SODIUM,NA 138 mmol/L (136-148)
[2019-05-06] MEDS: Piperacillin/Tazobactam 4.5 GM in Sodium Chloride 0.9% 100 ML IV SCH ×3 (10:21→22:12)
[2019-05-06] MEDS: Ketorolac 15 MG/ML SDV IVPUSH PRN ×2 (10:22→17:21)
--- NOTE | 2019-05-06 10:43 | PCM.PN ---
- General Info Date of Service: 05/06/19 Subjective Update: The patient denies chest pain, shortness of breath. Oxygen requirement improving from 15 L to 1L. Does endorse that he took what he thought was hydrocodone that he received on the street not from a pharmacy, he denies cocaine use despite testing positive on UDS. His biggest concern is bilateral hand pain that has been going on for many months, denies known trauma, has some swelling, denies redness. - Review of Systems General: Reports: No Symptoms HEENT: Reports: No Symptoms Pulmonary: Reports: No Symptoms Cardiovascular: Reports: No Symptoms Gastrointestinal: Reports: No Symptoms Genitourinary: Reports: No Symptoms Musculoskeletal: Reports: Hand Pain Skin: Reports: No Symptoms Neurological: Reports: No Symptoms Psychiatric: Reports: No Symptoms - Patient Data Vitals - Most Recent: Last Vital Signs Temp 99.9 F 05/06/19 04:20 Pulse 101 H 05/06/19 00:14 Resp 22 H 05/06/19 07:00 BP 135/86 05/06/19 01:00 Pulse Ox 96 05/06/19 07:00 Weight - Most Recent: 107.365 kg I&O - Last 24 Hours: Intake & Output 05/05/19 05/06/19 05/06/19 22:59 06:59 14:59 Intake Total 4010 678 Output Total 200 Balance 3810 678 Lab Results Last 24 Hours: Laboratory Results - last 24 hr 05/05/19 05/05/19 05/05/19 Range/Units 21:22 21:22 21:22 WBC 9.31 (4.0-11.0) K/uL RBC 5.58 (4.50-5.90) M/uL Hgb 16.1 (13.0-17.0) g/dL Hct 47.0 (38.0-50.0) % MCV 84.2 (80.0-98.0) fL MCH 28.9 (27.0-32.0) pg MCHC 34.3 (31.0-37.0) g/dL RDW Std Deviation 45.0 (28.0-62.0) fl RDW Coeff of Tab 15 (11.0-15.0) % Plt Count 299 (150-400) K/uL MPV 11.30 (7.40-12.00) fL Neut % (Auto) 72.2 (48.0-80.0) % Lymph % (Auto) 20.0 (16.0-40.0) % [place] % (Auto) 5.3 (0.0-15.0) % Eos % (Auto) 1.7 (0.0-7.0) % Baso % (Auto) 0.8 (0.0-1.5) % Neut # (Auto) 6.7 H (1.4-5.7) K/uL Lymph # (Auto) 1.9 (0.6-2.4) K/uL [place] # (Auto) 0.5 (0.0-0.8) K/uL Eos # (Auto) 0.2 (0.0-0.7) K/uL Baso # (Auto) 0.1 (0.0-0.1) K/uL Nucleated RBC % 0.0 /100WBC Nucleated RBCs # 0 K/uL ABG pH (7.35-7.45) ABG pCO2 (35-45) mmHG ABG pO2 (75-100) mmHG ABG HCO3 (22-26) mEq/L ABG Total CO2 ABG Base Excess (-2.0-2.0) Sodium 141 (136-148) mmol/L Potassium 4.0 (3.5-5.1) mmol/L Chloride 103 (98-107) mmol/L Carbon Dioxide 22.9 (21.0-32.0) mmol/L BUN 17 (7.0-18.0) mg/dL Creatinine 1.4 H (0.8-1.3) mg/dL Est Cr Clr Drug Dosing 80.68 mL/min Estimated GFR (MDRD) 58.7 ml/min Glucose 122 H (74-106) mg/dL Uric Acid (2.6-7.2) mg/dL Calcium 9.6 (8.5-10.1) mg/dL Phosphorus (2.6-4.7) mg/dL Magnesium (1.8-2.4) mg/dL Total Bilirubin 0.4 (0.2-1.0) mg/dL AST 121 H (15-37) IU/L ALT 122 H (14-63) IU/L Alkaline Phosphatase 80 (46-116) U/L Troponin I 0.069 H* (0.000-0.056) ng/mL B-Natriuretic Peptide 21 (<100) PG/ML Total Protein 7.6 (6.4-8.2) g/dL Albumin 3.7 (3.4-5.0) g/dL Globulin 3.9 (2.6-4.0) g/dL Albumin/Globulin Ratio 0.9 (0.9-1.6) Triglycerides (0-200) mg/dL Cholesterol (50-200) mg/dL LDL Cholesterol, Calc (60-180) mg/dL VLDL Cholesterol (5-55) mg/dL HDL Cholesterol (40-60) mg/dL Cholesterol/HDL Ratio (3.3-6.0) TSH 3rd Generation (0.36-3.74) uIU/mL Urine Color Urine Appearance Urine pH (5.0-8.0) Ur Specific [place] (1.001-1.035) Urine Protein (NEGATIVE) mg/dL Urine Glucose (UA) (NEGATIVE) mg/dL Urine Ketones (NEGATIVE) mg/dL Urine Occult Blood (NEGATIVE) Urine Nitrite (NEGATIVE) Urine Bilirubin (NEGATIVE) Urine Urobilinogen (<2.0) EU/dL Ur Leukocyte Esterase (NEGATIVE) Urine RBC (0-2/HPF) Urine WBC (0-5/HPF) Ur Epithelial Cells (NONE-FEW) Urine Bacteria (NEGATIVE) Salicylates 2.2 (0-20) mg/dL Urine Opiates Screen (NEGATIVE) Ur Oxycodone Screen (NEGATIVE) Urine Methadone Screen (NEGATIVE) Acetaminophen <2.0 ug/mL Ur Barbiturates Screen (NEGATIVE) Ur Phencyclidine Scrn (NEGATIVE) Ur Amphetamine Screen (NEGATIVE) U Methamphetamines Scrn (NEGATIVE) U Benzodiazepines Scrn (NEGATIVE) U Cocaine Metab Screen (NEGATIVE) U Marijuana (THC) Screen (NEGATIVE) Ethyl Alcohol <3 mg/dL 05/05/19 05/05/19 05/05/19 Range/Units 21:50 22:11 22:11 WBC (4.0-11.0) K/uL RBC (4.50-5.90) M/uL Hgb (13.0-17.0) g/dL Hct (38.0-50.0) % MCV (80.0-98.0) fL MCH (27.0-32.0) pg MCHC (31.0-37.0) g/dL RDW Std Deviation (28.0-62.0) fl RDW Coeff of Tab (11.0-15.0) % Plt Count (150-400) K/uL MPV (7.40-12.00) fL Neut % (Auto) (48.0-80.0) % Lymph % (Auto) (16.0-40.0) % [place] % (Auto) (0.0-15.0) % Eos % (Auto) (0.0-7.0) % Baso % (Auto) (0.0-1.5) % Neut # (Auto) (1.4-5.7) K/uL Lymph # (Auto) (0.6-2.4) K/uL [place] # (Auto) (0.0-0.8) K/uL Eos # (Auto) (0.0-0.7) K/uL Baso # (Auto) (0.0-0.1) K/uL Nucleated RBC % /100WBC Nucleated RBCs # K/uL ABG pH 7.364 (7.35-7.45) ABG pCO2 44 (35-45) mmHG ABG pO2 85 (75-100) mmHG ABG HCO3 25 (22-26) mEq/L ABG Total CO2 22.1 ABG Base Excess -0.7 (-2.0-2.0) Sodium (136-148) mmol/L Potassium (3.5-5.1) mmol/L Chloride (98-107) mmol/L Carbon Dioxide (21.0-32.0) mmol/L BUN (7.0-18.0) mg/dL Creatinine (0.8-1.3) mg/dL Est Cr Clr Drug Dosing mL/min Estimated GFR (MDRD) ml/min Glucose (74-106) mg/dL Uric Acid (2.6-7.2) mg/dL Calcium (8.5-10.1) mg/dL Phosphorus (2.6-4.7) mg/dL Magnesium (1.8-2.4) mg/dL Total Bilirubin (0.2-1.0) mg/dL AST (15-37) IU/L ALT (14-63) IU/L Alkaline Phosphatase (46-116) U/L Troponin I (0.000-0.056) ng/mL B-Natriuretic Peptide (<100) PG/ML Total Protein (6.4-8.2) g/dL Albumin (3.4-5.0) g/dL Globulin (2.6-4.0) g/dL Albumin/Globulin Ratio (0.9-1.6) Triglycerides (0-200) mg/dL Cholesterol (50-200) mg/dL LDL Cholesterol, Calc (60-180) mg/dL VLDL Cholesterol (5-55) mg/dL HDL Cholesterol (40-60) mg/dL Cholesterol/HDL Ratio (3.3-6.0) TSH 3rd Generation (0.36-3.74) uIU/mL Urine Color YELLOW Urine Appearance CLEAR Urine pH 5.5 (5.0-8.0) Ur Specific [place] >= 1.030 (1.001-1.035) Urine Protein TRACE H (NEGATIVE) mg/dL Urine Glucose (UA) NEGATIVE (NEGATIVE) mg/dL Urine Ketones NEGATIVE (NEGATIVE) mg/dL Urine Occult Blood NEGATIVE (NEGATIVE) Urine Nitrite NEGATIVE (NEGATIVE) Urine Bilirubin NEGATIVE (NEGATIVE) Urine Urobilinogen 0.2 (<2.0) EU/dL Ur Leukocyte Esterase NEGATIVE (NEGATIVE) Urine RBC 0-1 (0-2/HPF) Urine WBC 0-1 (0-5/HPF) Ur Epithelial Cells RARE (NONE-FEW) Urine Bacteria RARE (NEGATIVE) Salicylates (0-20) mg/dL Urine Opiates Screen NEGATIVE (NEGATIVE) Ur Oxycodone Screen NEGATIVE (NEGATIVE) Urine Methadone Screen NEGATIVE (NEGATIVE) Acetaminophen ug/mL Ur Barbiturates Screen NEGATIVE (NEGATIVE) Ur Phencyclidine Scrn NEGATIVE (NEGATIVE) Ur Amphetamine Screen POSITIVE (NEGATIVE) U Methamphetamines Scrn NEGATIVE (NEGATIVE) U Benzodiazepines Scrn NEGATIVE (NEGATIVE) U Cocaine Metab Screen POSITIVE (NEGATIVE) U Marijuana (THC) Screen NEGATIVE (NEGATIVE) Ethyl Alcohol mg/dL 05/06/19 05/06/19 05/06/19 Range/Units 00:43 03:55 03:55 WBC (4.0-11.0) K/uL RBC (4.50-5.90) M/uL Hgb (13.0-17.0) g/dL Hct (38.0-50.0) % MCV (80.0-98.0) fL MCH (27.0-32.0) pg MCHC (31.0-37.0) g/dL RDW Std Deviation (28.0-62.0) fl RDW Coeff of Tab (11.0-15.0) % Plt Count (150-400) K/uL MPV (7.40-12.00) fL Neut % (Auto) (48.0-80.0) % Lymph % (Auto) (16.0-40.0) % [place] % (Auto) (0.0-15.0) % Eos % (Auto) (0.0-7.0) % Baso % (Auto) (0.0-1.5) % Neut # (Auto) (1.4-5.7) K/uL Lymph # (Auto) (0.6-2.4) K/uL [place] # (Auto) (0.0-0.8) K/uL Eos # (Auto) (0.0-0.7) K/uL Baso # (Auto) (0.0-0.1) K/uL Nucleated RBC % /100WBC Nucleated RBCs # K/uL ABG pH (7.35-7.45) ABG pCO2 (35-45) mmHG ABG pO2 (75-100) mmHG ABG HCO3 (22-26) mEq/L ABG Total CO2 ABG Base Excess (-2.0-2.0) Sodium (136-148) mmol/L Potassium (3.5-5.1) mmol/L Chloride (98-107) mmol/L Carbon Dioxide (21.0-32.0) mmol/L BUN (7.0-18.0) mg/dL Creatinine (0.8-1.3) mg/dL Est Cr Clr Drug Dosing mL/min Estimated GFR (MDRD) ml/min Glucose (74-106) mg/dL Uric Acid (2.6-7.2) mg/dL Calcium (8.5-10.1) mg/dL Phosphorus (2.6-4.7) mg/dL Magnesium (1.8-2.4) mg/dL Total Bilirubin (0.2-1.0) mg/dL AST (15-37) IU/L ALT (14-63) IU/L Alkaline Phosphatase (46-116) U/L Troponin I 0.192 H* 0.181 H* (0.000-0.056) ng/mL B-Natriuretic Peptide (<100) PG/ML Total Protein (6.4-8.2) g/dL Albumin (3.4-5.0) g/dL Globulin (2.6-4.0) g/dL Albumin/Globulin Ratio (0.9-1.6) Triglycerides 42 (0-200) mg/dL Cholesterol 174 (50-200) mg/dL LDL Cholesterol, Calc 125 (60-180) mg/dL VLDL Cholesterol 8 (5-55) mg/dL HDL Cholesterol 41 (40-60) mg/dL Cholesterol/HDL Ratio 4.2 (3.3-6.0) TSH 3rd Generation 0.26 L (0.36-3.74) uIU/mL Urine Color Urine Appearance Urine pH (5.0-8.0) Ur Specific [place] (1.001-1.035) Urine Protein (NEGATIVE) mg/dL Urine Glucose (UA) (NEGATIVE) mg/dL Urine Ketones (NEGATIVE) mg/dL Urine Occult Blood (NEGATIVE) Urine Nitrite (NEGATIVE) Urine Bilirubin (NEGATIVE) Urine Urobilinogen (<2.0) EU/dL Ur Leukocyte Esterase (NEGATIVE) Urine RBC (0-2/HPF) Urine WBC (0-5/HPF) Ur Epithelial Cells (NONE-FEW) Urine Bacteria (NEGATIVE) Salicylates (0-20) mg/dL Urine Opiates Screen (NEGATIVE) Ur Oxycodone Screen (NEGATIVE) Urine Methadone Screen (NEGATIVE) Acetaminophen ug/mL Ur Barbiturates Screen (NEGATIVE) Ur Phencyclidine Scrn (NEGATIVE) Ur Amphetamine Screen (NEGATIVE) U Methamphetamines Scrn (NEGATIVE) U Benzodiazepines Scrn (NEGATIVE) U Cocaine Metab Screen (NEGATIVE) U Marijuana (THC) Screen (NEGATIVE) Ethyl Alcohol mg/dL 05/06/19 05/06/19 05/06/19 Range/Units 07:59 07:59 07:59 WBC 20.61 H (4.0-11.0) K/uL RBC 4.86 (4.50-5.90) M/uL Hgb 13.9 (13.0-17.0) g/dL Hct 41.4 (38.0-50.0) % MCV 85.2 (80.0-98.0) fL MCH 28.6 (27.0-32.0) pg MCHC 33.6 (31.0-37.0) g/dL RDW Std Deviation 46.9 (28.0-62.0) fl RDW Coeff of Tab 15 (11.0-15.0) % Plt Count 241 (150-400) K/uL MPV 11.00 (7.40-12.00) fL Neut % (Auto) 88.5 H (48.0-80.0) % Lymph % (Auto) 6.7 L (16.0-40.0) % [place] % (Auto) 4.6 (0.0-15.0) % Eos % (Auto) 0.1 (0.0-7.0) % Baso % (Auto) 0.1 (0.0-1.5) % Neut # (Auto) 18.2 H (1.4-5.7) K/uL Lymph # (Auto) 1.4 (0.6-2.4) K/uL [place] # (Auto) 1.0 H (0.0-0.8) K/uL Eos # (Auto) 0.0 (0.0-0.7) K/uL Baso # (Auto) 0.0 (0.0-0.1) K/uL Nucleated RBC % 0.0 /100WBC Nucleated RBCs # 0 K/uL ABG pH (7.35-7.45) ABG pCO2 (35-45) mmHG ABG pO2 (75-100) mmHG ABG HCO3 (22-26) mEq/L ABG Total CO2 ABG Base Excess (-2.0-2.0) Sodium 138 (136-148) mmol/L Potassium 4.3 (3.5-5.1) mmol/L Chloride 104 (98-107) mmol/L Carbon Dioxide 25.3 (21.0-32.0) mmol/L BUN 18 (7.0-18.0) mg/dL Creatinine 1.3 (0.8-1.3) mg/dL Est Cr Clr Drug Dosing 86.88 mL/min Estimated GFR (MDRD) > 60.0 ml/min Glucose 103 (74-106) mg/dL Uric Acid 6.5 (2.6-7.2) mg/dL Calcium 8.4 L (8.5-10.1) mg/dL Phosphorus 4.1 (2.6-4.7) mg/dL Magnesium 1.8 (1.8-2.4) mg/dL Total Bilirubin 0.5 (0.2-1.0) mg/dL AST 65 H (15-37) IU/L ALT 91 H (14-63) IU/L Alkaline Phosphatase 56 (46-116) U/L Troponin I (0.000-0.056) ng/mL B-Natriuretic Peptide (<100) PG/ML Total Protein 6.5 (6.4-8.2) g/dL Albumin 3.1 L (3.4-5.0) g/dL Globulin 3.4 (2.6-4.0) g/dL Albumin/Globulin Ratio 0.9 (0.9-1.6) Triglycerides (0-200) mg/dL Cholesterol (50-200) mg/dL LDL Cholesterol, Calc (60-180) mg/dL VLDL Cholesterol (5-55) mg/dL HDL Cholesterol (40-60) mg/dL Cholesterol/HDL Ratio (3.3-6.0) TSH 3rd Generation (0.36-3.74) uIU/mL Urine Color Urine Appearance Urine pH (5.0-8.0) Ur Specific [place] (1.001-1.035) Urine Protein (NEGATIVE) mg/dL Urine Glucose (UA) (NEGATIVE) mg/dL Urine Ketones (NEGATIVE) mg/dL Urine Occult Blood (NEGATIVE) Urine Nitrite (NEGATIVE) Urine Bilirubin (NEGATIVE) Urine Urobilinogen (<2.0) EU/dL Ur Leukocyte Esterase (NEGATIVE) Urine RBC (0-2/HPF) Urine WBC (0-5/HPF) Ur Epithelial Cells (NONE-FEW) Urine Bacteria (NEGATIVE) Salicylates (0-20) mg/dL Urine Opiates Screen (NEGATIVE) Ur Oxycodone Screen (NEGATIVE) Urine Methadone Screen (NEGATIVE) Acetaminophen ug/mL Ur Barbiturates Screen (NEGATIVE) Ur Phencyclidine Scrn (NEGATIVE) Ur Amphetamine Screen (NEGATIVE) U Methamphetamines Scrn (NEGATIVE) U Benzodiazepines Scrn (NEGATIVE) U Cocaine Metab Screen (NEGATIVE) U Marijuana (THC) Screen (NEGATIVE) Ethyl Alcohol mg/dL Med Orders - Current: Current Medications Albuterol/Ipratropium (Duoneb 3.0-0.5 Mg/3 Ml) 3 ml NEB Q4HRRT PENDING SALE TO [facility] Last Admin: 05/06/19 10:04 Dose: 3 ml Enoxaparin Sodium (Lovenox) 40 mg SUBCUT Q24H IRVIN Sodium Chloride (Normal Saline) 1,000 mls @ 150 mls/hr IV ASDIRECTED PENDING SALE TO [facility] Last Admin: 05/05/19 21:36 Dose: 150 mls/hr Lactated Ringer's (Ringers, Lactated) 1,000 mls @ 100 mls/hr IV ASDIRECTED PENDING SALE TO [facility] Last Admin: 05/06/19 01:36 Dose: 100 mls/hr Piperacillin Sod/Tazobactam (Sod 4.5 gm/ Sodium Chloride) 100 mls @ 100 mls/hr IV Q6H PENDING SALE TO [facility] Last Admin: 05/06/19 10:21 Dose: 100 mls/hr Ketorolac Tromethamine (Toradol) 15 mg IVPUSH Q6H PRN PRN Reason: Pain Stop: 05/11/19 05:00 Last Admin: 05/06/19 10:22 Dose: 15 mg Sodium Chloride (Saline Flush) 10 ml FLUSH ASDIRECTED PRN PRN Reason: Keep Vein Open Sodium Chloride (Saline Flush) 2.5 ml FLUSH ASDIRECTED PRN PRN Reason: Keep Vein Open Discontinued Medications Albuterol/Ipratropium (Duoneb 3.0-0.5 Mg/3 Ml) 3 ml NEB ONETIME ONE Stop: 05/05/19 21:10 Last Admin: 05/05/19 21:36 Dose: 3 ml Enoxaparin Sodium (Lovenox) 100 mg SUBCUT Q12H PENDING SALE TO [facility] Last Admin: 05/06/19 05:45 Dose: 100 mg Piperacillin Sod/Tazobactam (Sod 4.5 gm/ Sodium Chloride) 100 mls @ 100 mls/hr IV ONETIME ONE Stop: 05/05/19 23:09 Last Admin: 05/05/19 22:32 Dose: 100 mls/hr Ketorolac Tromethamine (Toradol) 30 mg IVPUSH ONETIME ONE Stop: 05/05/19 21:10 Last Admin: 05/05/19 21:37 Dose: 30 mg Ketorolac Tromethamine (Toradol) 15 mg IVPUSH Q6H PRN PRN Reason: Pain Stop: 05/11/19 00:39 Ketorolac Tromethamine (Toradol) 15 mg IVPUSH ONETIME ONE Stop: 05/06/19 04:31 Last Admin: 05/06/19 04:10 Dose: 15 mg - Exam Quality Assessment: Supplemental Oxygen General: Alert, Oriented Lungs: Clear to Auscultation, Normal Respiratory Effort Cardiovascular: Regular Rate, Regular Rhythm GI/Abdominal Exam: Normal Bowel Sounds, Soft, Non-Tender, No Distention Extremities: No Pedal Edema, Other (bilateral hands, swelling, tender throughout , no erythema) Skin: Warm, Dry, Intact Neurological: No New Focal Deficit Psy/Mental Status: Alert Sepsis Event Note - Evaluation Sepsis Screening Result: Sepsis Risk - Focused Exam Vital Signs: Vital Signs Temp Pulse Resp BP BP Pulse Ox 05/06/19 07:00 22 H 96 05/06/19 06:00 24 H 95 05/06/19 05:00 32 H 95 05/06/19 04:20 99.9 F 24 H 88 L 05/06/19 01:00 17 135/86 95 05/06/19 00:30 98.8 F 14 134/78 91 L 05/06/19 00:14 97.1 F 101 H 20 133/70 95 05/05/19 23:42 97.9 F 101 H 20 126/78 96 05/05/19 23:12 101 H 23 H 126/78 95 05/05/19 22:58 98.1 F 97 17 135/78 94 L Date Exam was Performed: 05/06/19 Time Exam was Performed: 11:22 - Problem List Review Problem List Initiated/Reviewed/Updated: Yes - Plan Plan:: 1. Cardiac arrest/ Overdose s/p CPR and Narcan- no chest pain, echo results pending, continue to monitor on telemetry. 2. Elevated troponin- likely secondary to CPR/cocaine- now trending down, EKG without ST changes, no chest pain 3. Acute hypoxic respiratory failure with possible aspiration pneumonia- oxygen requirement improving, weaned down to 1 L, CXR showed increased interstitial opacities bilateral which could be aspiration pneumonia as EMS found vomit in airway. His white count increased from 9 to 20. Received dose of Zosyn in ER, will continue Zosyn. 4. Bilateral Hand pain- obtained uric acid level and wnl, will get x-rays, likely will need to be worked up as an outpatient. Will transfer to floor.
--- NOTE | 2019-05-06 11:04 | CR ---
Right hand: 2 views of the right hand were obtained. Comparison: No previous right hand exam. Joint spaces within the right hand appear unremarkable. No fracture or other abnormality is appreciated. Impression: 1. No abnormality is identified on 2 view right hand exam. Diagnostic code #1 This report was dictated in [place] Standard Time
--- NOTE | 2019-05-06 11:04 | CR ---
Left hand: 2 views of the left hand were obtained. Comparison: No prior left hand exam. Joint spaces are preserved. No fracture, dislocation or other bony abnormality is appreciated. Impression: 1. No abnormality is identified on 2 view left hand exam. Diagnostic code #1 This report was dictated in [place] Standard Time
[2019-05-07] MEDS: Ketorolac 15 MG/ML SDV IVPUSH PRN ×4 (01:06→21:57)
[2019-05-07] MEDS: Lactated Ringers 1,000 ML IV SCH (01:07)
[2019-05-07] MEDS: Albuterol/Ipratropium 3.0-0.5 MG/3 ML Neb Soln NEB SCH ×3 (03:00→10:24)
[2019-05-07] MEDS: Piperacillin/Tazobactam 4.5 GM in Sodium Chloride 0.9% 100 ML IV SCH ×4 (03:06→21:57)
[2019-05-07 08:03] LABS: BLOOD UREA NITROGEN,BUN 11 mg/dL (7.0-18.0); CARBON DIOXIDE,CO2 26.6 mmol/L (21.0-32.0); CHLORIDE,CL 106 mmol/L (98-107); GLUCOSE RANDOM 112 mg/dL (74-106); SODIUM,NA 141 mmol/L (136-148)
--- NOTE | 2019-05-07 08:15 | PCM.PN ---
- General Info Date of Service: 05/07/19 Subjective Update: Patient reports sore chest and hand pain is still present. Has been SR/ST. Desats to 89 on RA when sleeping. Denies SOB. - Review of Systems General: Reports: No Symptoms HEENT: Reports: No Symptoms Pulmonary: Reports: No Symptoms Cardiovascular: Reports: Other (chest sore) Gastrointestinal: Reports: No Symptoms Genitourinary: Reports: No Symptoms Musculoskeletal: Reports: Hand Pain Skin: Reports: No Symptoms Neurological: Reports: No Symptoms Psychiatric: Reports: No Symptoms - Patient Data Vitals - Most Recent: Last Vital Signs Temp 97.8 F 05/07/19 03:35 Pulse 103 H 05/07/19 03:35 Resp 20 05/07/19 03:35 BP 139/77 05/07/19 03:35 Pulse Ox 95 05/07/19 03:35 Weight - Most Recent: 107.365 kg I&O - Last 24 Hours: Intake & Output 05/06/19 05/07/19 05/07/19 22:59 06:59 14:59 Intake Total 3330 2300 Output Total 2650 0 Balance 680 2300 Lab Results Last 24 Hours: Laboratory Results - last 24 hr 05/06/19 05/06/19 05/06/19 Range/Units 07:59 07:59 07:59 WBC 20.61 H (4.0-11.0) K/uL RBC 4.86 (4.50-5.90) M/uL Hgb 13.9 (13.0-17.0) g/dL Hct 41.4 (38.0-50.0) % MCV 85.2 (80.0-98.0) fL MCH 28.6 (27.0-32.0) pg MCHC 33.6 (31.0-37.0) g/dL RDW Std Deviation 46.9 (28.0-62.0) fl RDW Coeff of Tab 15 (11.0-15.0) % Plt Count 241 (150-400) K/uL MPV 11.00 (7.40-12.00) fL Neut % (Auto) 88.5 H (48.0-80.0) % Lymph % (Auto) 6.7 L (16.0-40.0) % [place] % (Auto) 4.6 (0.0-15.0) % Eos % (Auto) 0.1 (0.0-7.0) % Baso % (Auto) 0.1 (0.0-1.5) % Neut # (Auto) 18.2 H (1.4-5.7) K/uL Lymph # (Auto) 1.4 (0.6-2.4) K/uL [place] # (Auto) 1.0 H (0.0-0.8) K/uL Eos # (Auto) 0.0 (0.0-0.7) K/uL Baso # (Auto) 0.0 (0.0-0.1) K/uL Nucleated RBC % 0.0 /100WBC Nucleated RBCs # 0 K/uL Sodium 138 (136-148) mmol/L Potassium 4.3 (3.5-5.1) mmol/L Chloride 104 (98-107) mmol/L Carbon Dioxide 25.3 (21.0-32.0) mmol/L BUN 18 (7.0-18.0) mg/dL Creatinine 1.3 (0.8-1.3) mg/dL Est Cr Clr Drug Dosing 86.88 mL/min Estimated GFR (MDRD) > 60.0 ml/min Glucose 103 (74-106) mg/dL Uric Acid 6.5 (2.6-7.2) mg/dL Calcium 8.4 L (8.5-10.1) mg/dL Phosphorus 4.1 (2.6-4.7) mg/dL Magnesium 1.8 (1.8-2.4) mg/dL Total Bilirubin 0.5 (0.2-1.0) mg/dL AST 65 H (15-37) IU/L ALT 91 H (14-63) IU/L Alkaline Phosphatase 56 (46-116) U/L Total Protein 6.5 (6.4-8.2) g/dL Albumin 3.1 L (3.4-5.0) g/dL Globulin 3.4 (2.6-4.0) g/dL Albumin/Globulin Ratio 0.9 (0.9-1.6) 05/07/19 Range/Units 07:15 WBC 13.88 H (4.0-11.0) K/uL RBC 4.65 (4.50-5.90) M/uL Hgb 13.3 (13.0-17.0) g/dL Hct 39.8 (38.0-50.0) % MCV 85.6 (80.0-98.0) fL MCH 28.6 (27.0-32.0) pg MCHC 33.4 (31.0-37.0) g/dL RDW Std Deviation 48.0 (28.0-62.0) fl RDW Coeff of Tab 15 (11.0-15.0) % Plt Count 223 (150-400) K/uL MPV 11.50 (7.40-12.00) fL Neut % (Auto) 81.8 H (48.0-80.0) % Lymph % (Auto) 9.9 L (16.0-40.0) % [place] % (Auto) 5.8 (0.0-15.0) % Eos % (Auto) 2.1 (0.0-7.0) % Baso % (Auto) 0.4 (0.0-1.5) % Neut # (Auto) 11.4 H (1.4-5.7) K/uL Lymph # (Auto) 1.4 (0.6-2.4) K/uL [place] # (Auto) 0.8 (0.0-0.8) K/uL Eos # (Auto) 0.3 (0.0-0.7) K/uL Baso # (Auto) 0.1 (0.0-0.1) K/uL Nucleated RBC % 0.0 /100WBC Nucleated RBCs # 0 K/uL Sodium (136-148) mmol/L Potassium (3.5-5.1) mmol/L Chloride (98-107) mmol/L Carbon Dioxide (21.0-32.0) mmol/L BUN (7.0-18.0) mg/dL Creatinine (0.8-1.3) mg/dL Est Cr Clr Drug Dosing mL/min Estimated GFR (MDRD) ml/min Glucose (74-106) mg/dL Uric Acid (2.6-7.2) mg/dL Calcium (8.5-10.1) mg/dL Phosphorus (2.6-4.7) mg/dL Magnesium (1.8-2.4) mg/dL Total Bilirubin (0.2-1.0) mg/dL AST (15-37) IU/L ALT (14-63) IU/L Alkaline Phosphatase (46-116) U/L Total Protein (6.4-8.2) g/dL Albumin (3.4-5.0) g/dL Globulin (2.6-4.0) g/dL Albumin/Globulin Ratio (0.9-1.6) Med Orders - Current: Current Medications Albuterol/Ipratropium (Duoneb 3.0-0.5 Mg/3 Ml) 3 ml NEB Q4HRRT [facility] Last Admin: 05/07/19 06:09 Dose: 3 ml Enoxaparin Sodium (Lovenox) 40 mg SUBCUT Q24H [facility] Sodium Chloride (Normal Saline) 1,000 mls @ 150 mls/hr IV ASDIRECTED [facility] Last Admin: 05/05/19 21:36 Dose: 150 mls/hr Lactated Ringer's (Ringers, Lactated) 1,000 mls @ 100 mls/hr IV ASDIRECTED [facility] Last Admin: 05/07/19 01:07 Dose: 100 mls/hr Piperacillin Sod/Tazobactam (Sod 4.5 gm/ Sodium Chloride) 100 mls @ 100 mls/hr IV Q6H [facility] Last Admin: 05/07/19 03:06 Dose: 100 mls/hr Ketorolac Tromethamine (Toradol) 15 mg IVPUSH Q6H PRN PRN Reason: Pain Stop: 05/11/19 05:00 Last Admin: 05/07/19 01:06 Dose: 15 mg Sodium Chloride (Saline Flush) 10 ml FLUSH ASDIRECTED PRN PRN Reason: Keep Vein Open Sodium Chloride (Saline Flush) 2.5 ml FLUSH ASDIRECTED PRN PRN Reason: Keep Vein Open Discontinued Medications Albuterol/Ipratropium (Duoneb 3.0-0.5 Mg/3 Ml) 3 ml NEB ONETIME ONE Stop: 05/05/19 21:10 Last Admin: 05/05/19 21:36 Dose: 3 ml Enoxaparin Sodium (Lovenox) 100 mg SUBCUT Q12H [facility] Last Admin: 05/06/19 05:45 Dose: 100 mg Piperacillin Sod/Tazobactam (Sod 4.5 gm/ Sodium Chloride) 100 mls @ 100 mls/hr IV ONETIME ONE Stop: 05/05/19 23:09 Last Admin: 05/05/19 22:32 Dose: 100 mls/hr Ketorolac Tromethamine (Toradol) 30 mg IVPUSH ONETIME ONE Stop: 05/05/19 21:10 Last Admin: 05/05/19 21:37 Dose: 30 mg Ketorolac Tromethamine (Toradol) 15 mg IVPUSH Q6H PRN PRN Reason: Pain Stop: 05/11/19 00:39 Ketorolac Tromethamine (Toradol) 15 mg IVPUSH ONETIME ONE Stop: 05/06/19 04:31 Last Admin: 05/06/19 04:10 Dose: 15 mg - Exam Quality Assessment: Supplemental Oxygen General: Alert, Oriented, Cooperative Lungs: Clear to Auscultation, Normal Respiratory Effort Cardiovascular: Regular Rate, Regular Rhythm GI/Abdominal Exam: Normal Bowel Sounds, Soft, Non-Tender, No Distention Extremities: No Pedal Edema Skin: Warm, Dry, Intact Neurological: No New Focal Deficit Psy/Mental Status: Alert, Normal Affect, Normal Mood Sepsis Event Note - Evaluation Sepsis Screening Result: Sepsis Risk - Focused Exam Vital Signs: Vital Signs Temp Pulse Resp BP Pulse Ox 05/07/19 03:35 97.8 F 103 H 20 139/77 95 05/07/19 01:00 21 H 96 05/07/19 00:00 99.3 F 113 H 20 145/91 H 89 L Date Exam was Performed: 05/07/19 Time Exam was Performed: 10:38 - Problem List Review Problem List Initiated/Reviewed/Updated: Yes - My Orders Last 24 Hours: My Active Orders 05/06/19 12:57 Code Status [Resuscitation Status] Routine 05/06/19 Dinner Advance Diet Instructions [DIET] 05/07/19 07:15 COMPREHENSIVE METABOLIC PN,CMP [CHEM] Urgent - Plan Plan:: 1. Cardiac arrest/ Overdose s/p CPR and Narcan- no chest pain, echo results pending, continue to monitor on telemetry. 2. Elevated troponin- likely secondary to CPR/cocaine- trended down, EKG without ST changes, no chest pain 3. Acute hypoxic respiratory failure with possible aspiration pneumonia vs inflammatory- oxygen requirement improving, weaned down to 1 L, CXR showed increased interstitial opacities bilateral which could be aspiration pneumonia as EMS found vomit in airway. His white count decreased from 20 to 13 with Zosyn. Continue Zosyn. Will give IV solumedrol in case of inflammatory cause. Wean oxygen as tolerated. 4. Bilateral Hand pain- obtained uric acid level and wnl, x-rays normal, likely will need to be worked up as an outpatient.
[2019-05-07] MEDS: Enoxaparin 40 MG/0.4 ML Syringe SUBCUT SCH (08:48)
[2019-05-07] MEDS: methylPREDNISolone Sodium Succinate 40 MG/1 ML SDV IVPUSH SCH ×2 (10:33→17:25)
[2019-05-07] MEDS ORDERED: Albuterol/Ipratropium 3.0-0.5 MG/3 ML Neb Soln NEB PRN (13:45)
[2019-05-07] MEDS ORDERED: Metoprolol Tartrate 5 MG/5 ML SDV IVPUSH ONE (19:15)
[2019-05-08] MEDS: methylPREDNISolone Sodium Succinate 40 MG/1 ML SDV IVPUSH SCH ×2 (02:24→10:21)
[2019-05-08] MEDS: Ketorolac 15 MG/ML SDV IVPUSH PRN ×2 (04:18→10:21)
[2019-05-08] MEDS: Piperacillin/Tazobactam 4.5 GM in Sodium Chloride 0.9% 100 ML IV SCH ×2 (04:25→08:44)
[2019-05-08 06:12] LABS: BLOOD UREA NITROGEN,BUN 14 mg/dL (7.0-18.0); CARBON DIOXIDE,CO2 23.6 mmol/L (21.0-32.0); CHLORIDE,CL 106 mmol/L (98-107); GLUCOSE RANDOM 171 mg/dL (74-106); POTASSIUM,K 4.3 mmol/L (3.5-5.1); SODIUM,NA 140 mmol/L (136-148)
[2019-05-08] MEDS: Enoxaparin 40 MG/0.4 ML Syringe SUBCUT SCH (08:45)
[2019-05-08] MEDS ORDERED: Iopamidol 755 MG/ML 500 ML Multipack Bottle IVPUSH STA (09:35)
--- NOTE | 2019-05-08 10:06 | CT ---
CT chest Technique: Multiple axial sections were obtained from above the lung apices inferiorly through the lung bases. Intravenous contrast was utilized. Suboptimal opacification of the pulmonary arteries are noted. Findings: No discrete filling defects within the main or proximal segmental branches. More distal pulmonary emboli could easily be missed. Mediastinum shows small lymph nodes which are believed to be within normal limits. Aorta shows no aneurysm. Diffuse parenchymal densities are seen on both sides of the chest. Small bilateral pleural effusions are noted. Small hiatal hernia is noted. Other visualized upper abdominal structures shows no discrete abnormality. Bone window settings were reviewed which shows no acute osseous finding. Impression: 1. Suboptimal opacification of the pulmonary arteries. No larger pulmonary emboli within the main or proximal segmental branches are seen. Other pulmonary emboli could be missed on this exam. 2. Diffuse increased parenchymal densities on both sides of the chest. Findings could represent bacterial pneumonia as well as viral pneumonia as well as atypical infections. Recommend chest x-ray be obtained to allow for baseline study and allow easier follow-up. 3. Small hiatal hernia. 4. Small bilateral pleural effusions. Diagnostic code #5 This report was dictated in [place] Standard Time
--- NOTE | 2019-05-08 11:19 | PCM.DCSUM1 ---
Discharge Summary - Hospital Course HPI Initial Comments: Admission Date: 05/05/19 Discharge Date: 05/08/19 Admission Diagnosis: 1. Cardiac arrest and OD s/p CPR and Narcan 2. Elevated Troponin 3. Acute hypoxic respiratory failure Discharge Diagnosis: 1. Cardiac arrest and OD s/p CPR and Narcan 2. Elevated Troponin- improved 3. Acute hypoxic respiratory failure due to possible aspiration pneumonia- resolved 4. Bilateral hand pain 5. Transaminitis 6. AMERICA- resolved Procedures: None Consults: None Hospital Course: Patient is a 33 y/o M with PMH of drug abuse who comes in via EMS for apnea. Patient reportedly received was found to have no pulse hence received CPR and was being bagged for airway. Upon administering Narcan patient was able to wake up and was awake and oriented. Per EMS on their arrival the patient did have a vomit in the oral airway which was suctioned aggressively. . In the ER patients UDS was found to positive for cocaine and amphetamine. CXR showed diffuse interstitial lung markings. Received antibiotics for possible Aspiration pneumonia. Patient was requiring 15 liters of high flow o2 in ER. He did not have a white count at that time. He did have elevated troponins which was thought to be related to CPR vs cocaine induced vasospasm. Patient denied chest pain and EKG did not show any ST changes. He was admitted to ICU. He next morning his white count increased to 20 and he was still requiring oxygen so Zosyn was started for possible aspiration pneumonia. Over the course of his stay, he was weaned from oxygen and satting well on room air. He reports hemoptysis, CTA was obtained and showed the bilateral pneumonia but no PE. His troponin was trended and overall trended down. Echo was obtained results were pending at time of discharge. Patient had AMERICA and transaminitis which resolved with IVF. Patient complained of bilateral hand pain and swelling that he has had for months, no known trauma, x-rays did not show any fracture/ dislocation and uric acid was wnl. Patient will need further work up as an outpatient. By day of discharge, patient was satting well on room air, was not expecting chest pain, and was requesting discharge. Disposition: Home Discharge Condition: vitals stable, tolerating oral diet, ambulating without difficulty, symptom improvement Discharge Instructions: regular diet as tolerated, activity as tolerated, take medications as prescribed. Symptoms to report to physician include fever/chills , chest pain, shortness of breath, abdominal pain, erythema, drainage/discharge , or not improving as expected. Abstain from drugs, alcohol, non prescribed medications. Discharge Medications: Dextroamphetamine/Amphetamine [Adderall] 30 mg PO DAILY 05/05/19 [History] Amoxicillin/Potassium Clav [Augmentin 875-125 Tablet] 1 each PO BID 7 Days #14 tablet 05/08/19 [Rx] Ketorolac [Toradol] 10 mg PO TID PRN 3 Days #9 tab 05/08/19 [Rx] Follow-up: Liudmila Cole 05/15/19 - Discharge Data Discharge Date: 05/08/19 Discharge Disposition: Home, Self-Care 01 Condition: Fair - Referral to Home Health Primary Care Physician: PCP None - Patient Instructions Diet: Usual Diet as Tolerated Activity: As Tolerated Showering/Bathing: May Shower Notify Provider of: Fever, Increased Pain, Swelling and Redness, Drainage, Nausea and/or Vomiting Other/Special Instructions: Additional symptoms include chest pain, fast heart rate, shortness of breath, or abdominal pain. Avoid all ilicit drugs, non prescribed medications, and alcohol. - Discharge Plan *PRESCRIPTION DRUG MONITORING PROGRAM REVIEWED*: No *COPY OF PRESCRIPTION DRUG MONITORING REPORT IN PATIENT TRINY: No Prescriptions/Med Rec: Amoxicillin/Potassium Clav [Augmentin 875-125 Tablet] 1 each PO BID 7 Days #14 tablet Ketorolac [Toradol] 10 mg PO TID PRN 3 Days #9 tab PRN Reason: Pain Home Medications: Home Meds Dextroamphetamine/Amphetamine [Adderall] 30 mg PO DAILY 05/05/19 [History] Amoxicillin/Potassium Clav [Augmentin 875-125 Tablet] 1 each PO BID 7 Days #14 tablet 05/08/19 [Rx] Ketorolac [Toradol] 10 mg PO TID PRN 3 Days #9 tab 05/08/19 [Rx] Patient Handouts: Hypoxia Referrals: Liudmila Cole NP [Nurse Practitioner] - 05/15/19 11:00 am - Discharge Summary/Plan Comment DC Time >30 min.: No - Patient Data Vitals - Most Recent: Last Vital Signs Temp 98.8 F 05/08/19 08:00 Pulse 94 05/08/19 08:00 Resp 18 05/08/19 08:00 BP 142/79 H 05/08/19 08:00 Pulse Ox 94 L 05/08/19 04:00 Weight - Most Recent: 107.365 kg I&O - Last 24 hours: Intake & Output 05/07/19 05/08/19 05/08/19 22:59 06:59 14:59 Intake Total 1200 1100 Output Total 800 Balance 400 1100 Lab Results - Last 24 hrs: Laboratory Results - last 24 hr 05/08/19 05/08/19 Range/Units 05:18 05:18 WBC 17.50 H (4.0-11.0) K/uL RBC 4.69 (4.50-5.90) M/uL Hgb 13.4 (13.0-17.0) g/dL Hct 39.8 (38.0-50.0) % MCV 84.9 (80.0-98.0) fL MCH 28.6 (27.0-32.0) pg MCHC 33.7 (31.0-37.0) g/dL RDW Std Deviation 45.5 (28.0-62.0) fl RDW Coeff of Tab 15 (11.0-15.0) % Plt Count 272 (150-400) K/uL MPV 12.10 H (7.40-12.00) fL Neut % (Auto) 93.2 H (48.0-80.0) % Lymph % (Auto) 5.0 L (16.0-40.0) % Harding % (Auto) 1.7 (0.0-15.0) % Eos % (Auto) 0.0 (0.0-7.0) % Baso % (Auto) 0.1 (0.0-1.5) % Neut # (Auto) 16.3 H (1.4-5.7) K/uL Lymph # (Auto) 0.9 (0.6-2.4) K/uL Harding # (Auto) 0.3 (0.0-0.8) K/uL Eos # (Auto) 0.0 (0.0-0.7) K/uL Baso # (Auto) 0.0 (0.0-0.1) K/uL Nucleated RBC % 0.0 /100WBC Nucleated RBCs # 0 K/uL Sodium 140 (136-148) mmol/L Potassium 4.3 (3.5-5.1) mmol/L Chloride 106 (98-107) mmol/L Carbon Dioxide 23.6 (21.0-32.0) mmol/L BUN 14 (7.0-18.0) mg/dL Creatinine 1.1 (0.8-1.3) mg/dL Est Cr Clr Drug Dosing 102.68 mL/min Estimated GFR (MDRD) > 60.0 ml/min Glucose 171 H (74-106) mg/dL Calcium 8.8 (8.5-10.1) mg/dL Med Orders - Current: Current Medications Albuterol/Ipratropium (Duoneb 3.0-0.5 Mg/3 Ml) 3 ml NEB Q4HRRT PRN PRN Reason: Wheezing Enoxaparin Sodium (Lovenox) 40 mg SUBCUT Q24H PENDING SALE TO [facility] Last Admin: 05/08/19 08:45 Dose: 40 mg Sodium Chloride (Normal Saline) 1,000 mls @ 150 mls/hr IV ASDIRECTED PENDING SALE TO [facility] Last Admin: 05/05/19 21:36 Dose: 150 mls/hr Lactated Ringer's (Ringers, Lactated) 1,000 mls @ 100 mls/hr IV ASDIRECTED PENDING SALE TO [facility] Last Admin: 05/07/19 01:07 Dose: 100 mls/hr Piperacillin Sod/Tazobactam (Sod 4.5 gm/ Sodium Chloride) 100 mls @ 100 mls/hr IV Q6H PENDING SALE TO [facility] Last Admin: 05/08/19 08:44 Dose: 100 mls/hr Ketorolac Tromethamine (Toradol) 15 mg IVPUSH Q6H PRN PRN Reason: Pain Stop: 05/11/19 05:00 Last Admin: 05/08/19 10:21 Dose: 15 mg Methylprednisolone Sodium Succinate (Solu-Medrol) 40 mg IVPUSH Q8H PENDING SALE TO [facility] Last Admin: 05/08/19 10:21 Dose: 40 mg Sodium Chloride (Saline Flush) 10 ml FLUSH ASDIRECTED PRN PRN Reason: Keep Vein Open Sodium Chloride (Saline Flush) 2.5 ml FLUSH ASDIRECTED PRN PRN Reason: Keep Vein Open Discontinued Medications Albuterol/Ipratropium (Duoneb 3.0-0.5 Mg/3 Ml) 3 ml NEB ONETIME ONE Stop: 05/05/19 21:10 Last Admin: 05/05/19 21:36 Dose: 3 ml Albuterol/Ipratropium (Duoneb 3.0-0.5 Mg/3 Ml) 3 ml NEB Q4HRRT PENDING SALE TO [facility] Last Admin: 05/07/19 10:24 Dose: Not Given Enoxaparin Sodium (Lovenox) 100 mg SUBCUT Q12H PENDING SALE TO [facility] Last Admin: 05/06/19 05:45 Dose: 100 mg Piperacillin Sod/Tazobactam (Sod 4.5 gm/ Sodium Chloride) 100 mls @ 100 mls/hr IV ONETIME ONE Stop: 05/05/19 23:09 Last Admin: 05/05/19 22:32 Dose: 100 mls/hr Iopamidol (Isovue Multipack-370 (76%)) 100 ml IVPUSH ONETIME STA Stop: 05/08/19 09:36 Last Admin: 05/08/19 09:36 Dose: 100 ml Ketorolac Tromethamine (Toradol) 30 mg IVPUSH ONETIME ONE Stop: 05/05/19 21:10 Last Admin: 05/05/19 21:37 Dose: 30 mg Ketorolac Tromethamine (Toradol) 15 mg IVPUSH Q6H PRN PRN Reason: Pain Stop: 05/11/19 00:39 Ketorolac Tromethamine (Toradol) 15 mg IVPUSH ONETIME ONE Stop: 05/06/19 04:31 Last Admin: 05/06/19 04:10 Dose: 15 mg Metoprolol Tartrate (Lopressor) 5 mg IVPUSH ONETIME ONE Stop: 05/07/19 19:16 Last Admin: 05/07/19 20:38 Dose: 5 mg
--- NOTE | 2019-05-11 14:26 | ECHO ---
The echocardiogram report can be seen in this patient's EMR (Electronic Medical Record) in the REPORTS section. The echocardiogram report has also been scanned into PACS and can be seen there as well. BILLIE
== END 2019-05-08 13:45 | disposition home or self-care (01) ==
LOC: MW.ED 21:03 → MW.ICU 23:28 → MW.MS 05-06 17:46
PROVIDERS: ADMIT Student in an Organized Health Care Education/Training Program; ATTEND Student in an Organized Health Care Education/Training Program
DX: J96.01 Acute respiratory failure with hypoxia (principal); J18.9 Pneumonia, unspecified organism; R79.89 Other specified abnormal findings of blood chemistry; M79.642 Pain in left hand; M79.641 Pain in right hand; R74.0 Nonspecific elevation of levels of transaminase and lactic acid dehydrogenase [LDH]; N17.9 Acute kidney failure, unspecified; F90.9 Attention-deficit hyperactivity disorder, unspecified type; F17.210 Nicotine dependence, cigarettes, uncomplicated
CPT/HCPCS: 36415; 36600; 71045; 71275; 73120; 80048; 80053; 80061; 80305; 80320; 80329; 81001; 82803; 83735; 83880; 84100; 84443; 84484; 84550; 85025; 93005; 93306; 94640; 96361; 96365; 96375; 99285; J1650; J1885; J2543; J2920; J3490; J7030; J7050; J7120; Q9967; 96366; 96372; 96376; 99284; G0378; G0480; J7620-GY

== ENCOUNTER 2019-07-25 09:42 | Emergency (ER) | payer SELFPAY ==
--- NOTE | 2019-07-25 09:53 | EDM.PDOCBH ---
ED HPI GENERAL MEDICAL PROBLEM - General Stated Complaint: SI Time Seen by Provider: 07/25/19 09:45 Source of Information: Reports: Patient, Police History Limitations: Reports: No Limitations - History of Present Illness INITIAL COMMENTS - FREE TEXT/NARRATIVE: 33-year-old male with no past medical history was brought in by police for suicidal ideation. He cheated on his and his was going to leave him with the kids, he cut both his wrists with razor blades and drink alcohol. He denies homicidal ideation or auditory hallucinations. He admits to chronic back pain that is unchanged. ROS: A 10-point review of systems, other than pertinent positives and negatives as stated per HPI, is otherwise negative PHYSICAL EXAM General: AOx4, GCS = 15, No distress HEENT: dry mucous membrane Neck: supple, no meningismus, no Kernig or Brudzinski Cardiac: S1S2 RRR Respiratory: CTAB, no crackles or rales, no wheezing Abdomen: Soft, nontender, no rebound or guarding, nondistended, no pulsatile mass. Back: nontender Musculoskeletal: NVI distally, no deformity, superficial lacerations bilateral wrists, no active bleeding. Neuro: No focal deficits Psych: suicidal MEDICAL DECISION MAKING: I reviewed the patients past medical records, lab and radiographic findings. I discussed the case with family members. My differential diagnosis included: SI, HI. - Related Data Allergies Allergy/AdvReac Type Severity Reaction Status Date / Time No Known Allergies Allergy Verified 07/25/19 09:58 Home Meds: Home Meds . [No Known Home Meds] 07/25/19 [History] Past Medical History HEENT History: Reports: None Cardiovascular History: Reports: None Respiratory History: Reports: None Gastrointestinal History: Reports: None Genitourinary History: Reports: None Musculoskeletal History: Reports: None Neurological History: Reports: None Psychiatric History: Reports: ADHD Endocrine/Metabolic History: Reports: None Hematologic History: Reports: None Oncologic (Cancer) History: Reports: None Dermatologic History: Reports: None - Infectious Disease History Infectious Disease History: Reports: None Social & Family History - Family History Family Medical History: Noncontributory - Caffeine Use Caffeine Use: Reports: Soda ED ROS GENERAL - Review of Systems Review Of Systems: See Below (see dictation) ED EXAM, BEHAVIORAL HEALTH - Physical Exam Exam: See Below (see dictation) EKG INTERPRETATION EKG Interpretation Comments: 117 Bpm, sinus tach, normal QRS interval, no STEMI. EKG and rhythm strip interpreted by me at [employer] COURSE, [facility] COMP - Course Vital Signs: Last Vital Signs Temp 98.5 F 07/25/19 09:51 Pulse 127 H 07/25/19 09:51 Resp 16 07/25/19 09:51 BP 155/105 H 07/25/19 09:51 Pulse Ox 96 07/25/19 09:51 Orders, Labs, Meds: Active Orders 24 hr Category Date Time Status EKG Documentation Completion [RC] STAT Care 07/25/19 09:45 Active ACETAMINOPHEN [CHEM] Stat Lab 07/25/19 09:56 Results COMPREHENSIVE METABOLIC PN,CMP [CHEM] Stat Lab 07/25/19 09:56 Results ETHANOL BLOOD MEDICAL [CHEM] Stat Lab 07/25/19 09:56 Results MAGNESIUM [CHEM] Stat Lab 07/25/19 09:56 Results SALICYLATE [CHEM] Stat Lab 07/25/19 09:56 Results TSH [CHEM] Stat Lab 07/25/19 09:56 Results Laboratory Tests 07/25/19 07/25/19 07/25/19 Range/Units 09:56 09:56 10:10 WBC 11.17 H (4.0-11.0) K/uL RBC 6.23 H (4.50-5.90) M/uL Hgb 17.6 H (13.0-17.0) g/dL Hct 51.8 H (38.0-50.0) % MCV 83.1 (80.0-98.0) fL MCH 28.3 (27.0-32.0) pg MCHC 34.0 (31.0-37.0) g/dL RDW Std Deviation 46.1 (28.0-62.0) fl RDW Coeff of Tab 15 (11.0-15.0) % Plt Count 250 (150-400) K/uL MPV 12.00 (7.40-12.00) fL Neut % (Auto) 73.5 (48.0-80.0) % Lymph % (Auto) 19.7 (16.0-40.0) % Ferry % (Auto) 5.7 (0.0-15.0) % Eos % (Auto) 0.4 (0.0-7.0) % Baso % (Auto) 0.7 (0.0-1.5) % Neut # (Auto) 8.2 H (1.4-5.7) K/uL Lymph # (Auto) 2.2 (0.6-2.4) K/uL Ferry # (Auto) 0.6 (0.0-0.8) K/uL Eos # (Auto) 0.1 (0.0-0.7) K/uL Baso # (Auto) 0.1 (0.0-0.1) K/uL Nucleated RBC % 0.0 /100WBC Nucleated RBCs # 0 K/uL Sodium 140 (136-148) mmol/L Potassium 3.9 (3.5-5.1) mmol/L Chloride 102 (98-107) mmol/L Carbon Dioxide 24.6 (21.0-32.0) mmol/L BUN 9 (7.0-18.0) mg/dL Creatinine 1.2 (0.8-1.3) mg/dL Est Cr Clr Drug Dosing 91.25 mL/min Estimated GFR (MDRD) > 60.0 ml/min Glucose 126 H (74-106) mg/dL Calcium 8.5 (8.5-10.1) mg/dL Magnesium 2.0 (1.8-2.4) mg/dL Total Bilirubin 0.2 (0.2-1.0) mg/dL AST 36 (15-37) IU/L ALT 54 (14-63) IU/L Alkaline Phosphatase 72 (46-116) U/L Total Protein 8.1 (6.4-8.2) g/dL Albumin 4.0 (3.4-5.0) g/dL Globulin 4.1 H (2.6-4.0) g/dL Albumin/Globulin Ratio 1.0 (0.9-1.6) TSH 3rd Generation 0.33 L (0.36-3.74) uIU/mL Urine Color YELLOW Urine Appearance CLEAR Urine pH 6.0 (5.0-8.0) Ur Specific Fulton <= 1.005 (1.001-1.035) Urine Protein NEGATIVE (NEGATIVE) mg/dL Urine Glucose (UA) NEGATIVE (NEGATIVE) mg/dL Urine Ketones NEGATIVE (NEGATIVE) mg/dL Urine Occult Blood NEGATIVE (NEGATIVE) Urine Nitrite NEGATIVE (NEGATIVE) Urine Bilirubin NEGATIVE (NEGATIVE) Urine Urobilinogen 0.2 (<2.0) EU/dL Ur Leukocyte Esterase NEGATIVE (NEGATIVE) Urine RBC 0-3 (0-2/HPF) Urine WBC 0-3 (0-5/HPF) Ur Epithelial Cells RARE (NONE-FEW) Urine Bacteria RARE (NEGATIVE) Salicylates 2.4 (0-20) mg/dL Urine Opiates Screen (NEGATIVE) Ur Oxycodone Screen (NEGATIVE) Urine Methadone Screen (NEGATIVE) Ur Barbiturates Screen (NEGATIVE) Ur Phencyclidine Scrn (NEGATIVE) Ur Amphetamine Screen (NEGATIVE) U Methamphetamines Scrn (NEGATIVE) U Benzodiazepines Scrn (NEGATIVE) U Cocaine Metab Screen (NEGATIVE) U Marijuana (THC) Screen (NEGATIVE) Ethyl Alcohol 240 mg/dL 07/25/19 Range/Units 10:10 WBC (4.0-11.0) K/uL RBC (4.50-5.90) M/uL Hgb (13.0-17.0) g/dL Hct (38.0-50.0) % MCV (80.0-98.0) fL MCH (27.0-32.0) pg MCHC (31.0-37.0) g/dL RDW Std Deviation (28.0-62.0) fl RDW Coeff of Tab (11.0-15.0) % Plt Count (150-400) K/uL MPV (7.40-12.00) fL Neut % (Auto) (48.0-80.0) % Lymph % (Auto) (16.0-40.0) % Ferry % (Auto) (0.0-15.0) % Eos % (Auto) (0.0-7.0) % Baso % (Auto) (0.0-1.5) % Neut # (Auto) (1.4-5.7) K/uL Lymph # (Auto) (0.6-2.4) K/uL Ferry # (Auto) (0.0-0.8) K/uL Eos # (Auto) (0.0-0.7) K/uL Baso # (Auto) (0.0-0.1) K/uL Nucleated RBC % /100WBC Nucleated RBCs # K/uL Sodium (136-148) mmol/L Potassium (3.5-5.1) mmol/L Chloride (98-107) mmol/L Carbon Dioxide (21.0-32.0) mmol/L BUN (7.0-18.0) mg/dL Creatinine (0.8-1.3) mg/dL Est Cr Clr Drug Dosing mL/min Estimated GFR (MDRD) ml/min Glucose (74-106) mg/dL Calcium (8.5-10.1) mg/dL Magnesium (1.8-2.4) mg/dL Total Bilirubin (0.2-1.0) mg/dL AST (15-37) IU/L ALT (14-63) IU/L Alkaline Phosphatase (46-116) U/L Total Protein (6.4-8.2) g/dL Albumin (3.4-5.0) g/dL Globulin (2.6-4.0) g/dL Albumin/Globulin Ratio (0.9-1.6) TSH 3rd Generation (0.36-3.74) uIU/mL Urine Color Urine Appearance Urine pH (5.0-8.0) Ur Specific F[place] (1.001-1.035) Urine Protein (NEGATIVE) mg/dL Urine Glucose (UA) (NEGATIVE) mg/dL Urine Ketones (NEGATIVE) mg/dL Urine Occult Blood (NEGATIVE) Urine Nitrite (NEGATIVE) Urine Bilirubin (NEGATIVE) Urine Urobilinogen (<2.0) EU/dL Ur Leukocyte Esterase (NEGATIVE) Urine RBC (0-2/HPF) Urine WBC (0-5/HPF) Ur Epithelial Cells (NONE-FEW) Urine Bacteria (NEGATIVE) Salicylates (0-20) mg/dL Urine Opiates Screen NEGATIVE (NEGATIVE) Ur Oxycodone Screen NEGATIVE (NEGATIVE) Urine Methadone Screen NEGATIVE (NEGATIVE) Ur Barbiturates Screen NEGATIVE (NEGATIVE) Ur Phencyclidine Scrn NEGATIVE (NEGATIVE) Ur Amphetamine Screen NEGATIVE (NEGATIVE) U Methamphetamines Scrn NEGATIVE (NEGATIVE) U Benzodiazepines Scrn NEGATIVE (NEGATIVE) U Cocaine Metab Screen POSITIVE (NEGATIVE) U Marijuana (THC) Screen NEGATIVE (NEGATIVE) Ethyl Alcohol mg/dL Medical Clearance: 07/25/19 10:49 Patient is medically cleared. Departure - Departure Time of Disposition: 10:49 Disposition: DC/Tfer to Psych Hosp/Unit 65 Condition: Good Clinical Impression: Suicidal ideation, Alcohol intoxication - Discharge Information Instructions: Suicidal Feelings: How to Help Yourself, Alcohol Intoxication, [id number] Referrals: PCPKarina [Primary Care Provider] - Sepsis Event Note - Focused Exam Vital Signs: Vital Signs Temp Pulse Resp BP Pulse Ox 07/25/19 09:51 98.5 F 127 H 16 155/105 H 96 Date Exam was Performed: 07/25/19 Time Exam was Performed: 10:48 - My Orders Last 24 Hours: My Active Orders 07/25/19 09:45 EKG Documentation Completion [RC] STAT 07/25/19 09:56 ACETAMINOPHEN [CHEM] Stat COMPREHENSIVE METABOLIC PN,CMP [CHEM] Stat ETHANOL BLOOD MEDICAL [CHEM] Stat MAGNESIUM [CHEM] Stat SALICYLATE [CHEM] Stat TSH [CHEM] Stat - Assessment/Plan Last 24 Hours: My Active Orders 07/25/19 09:45 EKG Documentation Completion [RC] STAT 07/25/19 09:56 ACETAMINOPHEN [CHEM] Stat COMPREHENSIVE METABOLIC PN,CMP [CHEM] Stat ETHANOL BLOOD MEDICAL [CHEM] Stat MAGNESIUM [CHEM] Stat SALICYLATE [CHEM] Stat TSH [CHEM] Stat
[2019-07-25 10:36] LABS: BLOOD UREA NITROGEN,BUN 9 mg/dL (7.0-18.0); CARBON DIOXIDE,CO2 24.6 mmol/L (21.0-32.0); CHLORIDE,CL 102 mmol/L (98-107); GLUCOSE RANDOM 126 mg/dL (74-106); POTASSIUM,K 3.9 mmol/L (3.5-5.1); SODIUM,NA 140 mmol/L (136-148)
[2019-07-25 10:49] LABS: ACETAMINOPHEN <2.0 ug/mL
== END 2019-07-25 12:50 ==
LOC: MW.ED 09:42
DX: S61.511A Laceration without foreign body of right wrist, initial encounter (principal); S61.512A Laceration without foreign body of left wrist, initial encounter; F10.129 Alcohol abuse with intoxication, unspecified; Y90.8 Blood alcohol level of 240 mg/100 ml or more; R00.0 Tachycardia, unspecified; W26.8XXA Contact with other sharp object(s), not elsewhere classified, initial encounter
CPT/HCPCS: 36415; 80053; 80305-QW; 80307; 81001; 83735; 84443; 85025; 93005; 99285-25